=== PATIENT | female | born 1955 | race Caucasian/White ===

== ENCOUNTER 2016-10-01 12:15 | Inpatient (IN) | payer MEDICARE ==
[~2016-10-01] VITALS: Ht 172.7 cm; Wt 95.3 kg
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
[~2016-10-01 12:15] MED LIST: ALOE VESTA141 GM TOP; AMBIEN5 MG PO; ATARAX25 MG PO; ATIVAN 0.5MG0.5 MG PO; CARDIZEM CD (T120 MG PO; CARDIZEM SR120 MG PO; COLACE100 MG PO; DAKINS 0.25% (473 ML TOP; DETROL LA EXTEND4 MG PO; DIFLUCAN100 MG PO; DRISDOL 5050000 UNIT PO; DULCOLAX10 MG R; GEODON40 MG PO; GLUCOPHAGE1000 MG PO; HYDROCODON-ACE1 EAC4 PO; INVANZ 1 G1 GM/100 M IV; KEFLEX250 MG PO; LAMICTAL100 MG PO; LEVAQUIN500 MG PO; LEXAPRO20 MG PO; LINZESS145 MCG PO; MACROBID100 MG PO; MIRALAX17 GM PO; NEURONTIN600 MG PO; NORCO 5-325 MG1 TAB PO; NOVOLOG100 UNIT/M SUB-Q; OXYGEN M-15 INH; PERCOCET 5-3251 EACH PO; PLAVIX75 MG PO; POTASSIUM99 M1 PO; PROBIOTIC1 EAC1 PO; PROVENTIL OR V6.7 GM INH; PYRIDIUM200 MG PO; SENOKOT S (S1 TABLET PO; SEROQUEL100 MG PO; SIMVASTATIN80 MG PO; SINEQUAN25 MG PO; STOOL SOFTENER1 EACH PO; THERAGRAN-M1 TAB PO; TOUJEO SOL300 UNIT/1 SUB-Q; TRULICITY1.5 MG/0.5 SUB-Q; TYLENOL EXTRA500 MG PO; ULTRAM50 MG PO; VASOTEC20 MG PO; VESICARE5 MG PO; VITAMIN D1000 UNIT PO; ZOCOR80 MG PO
[2016-10-01 13:41] LABS: BICARBONATE 31.7 mmol/L (18.0-23.0); PCO2 66 mmHg (35-45)
[2016-10-01 13:42] LABS: BASOPHIL % 0.5 %; EOSINOPHIL # 0.2 K/uL (0.0-0.5); EOSINOPHIL % 2.9 %; HEMATOCRIT 30.3 % (33.0-46.0); HEMOGLOBIN 8.6 g/dL (10.0-15.0); IMMATURE GRANULOCYTE % 0.2 %; LYMPHOCYTE # 1.2 K/uL (0.8-4.0); LYMPHOCYTE % 20.6 %; MCH 24.6 pg (27.0-34.0); MCHC 28.4 gm/dL (32.0-36.5); MCV 86.6 fl (83.0-98.0); MONOCYTE # 0.4 K/uL (0.0-1.0); MONOCYTE % 6.6 %; MPV 9.9 fl (9.4-12.4); NEUTROPHIL # (ANC) 4.1 K/uL (1.8-7.8); NEUTROPHIL % 69.2 %; NRBC % 0 /100WBC (0-0.00); PO2 45 mmHg (80-90); WBC 5.9 K/uL (4.0-11.0)
[2016-10-01 13:43] LABS: PLATELET COUNT 283 K/uL (150-450); RDW-CV 18.1 % (11.9-14.6)
[2016-10-01 14:02] LABS: PROTIME 10.6 SECONDS (9.6-11.1); PTT 27 SECONDS (25-32)
[2016-10-01 14:02] LABS: BICARBONATE 30.9 mmol/L (18.0-23.0); PCO2 60 mmHg (35-45)
[2016-10-01 14:03] LABS: ALBUMIN 2.7 gm/dL (3.5-5.0); ALK PHOS 58 IU/L (33-138); ALT 17 IU/L (12-78); ANION GAP 13.8 (10.0-19.0); AST 22 IU/L (10-40); BLOOD UREA NITROGEN 32 mg/dL (6-24); CALCIUM 7.8 mg/dL (8.5-10.5); CHLORIDE 106 mMol/L (96-110); CO2 30 mMol/L (22-32); CREATININE 1.6 mg/dL (0.5-1.1); POTASSIUM 4.8 mMol/L (3.7-5.1); SODIUM 145 mMol/L (135-145)
[2016-10-01 14:03] LABS: LACTATE 1.4 mEq/L (0.50-1.60); PO2 58 mmHg (80-90)
[2016-10-01 14:05] LABS: ESTIMATED GFR (MDRD EQUATION) 33; TOTAL BILIRUBIN < 0.1 mg/dL (0.0-1.5)
[2016-10-01 14:30] LABS: BILIRUBIN URINE NEGATIVE (NEGATIVE); BLOOD URINE 150 /UL (NEGATIVE); COLOR URINE YELLOW (YELLOW); GLUCOSE URINE NEGATIVE (NEGATIVE); KETONE URINE NEGATIVE (NEGATIVE); LEUKOCYTES URINE 500 /UL (NEGATIVE); NITRITE URINE POSITIVE (NEGATIVE); PROTEIN URINE 30 mg/dL (NEGATIVE); TURBIDITY URINE 3+ (CLEAR); UROBILINOGEN URINE NORMAL (NORMAL)
[2016-10-01 14:40] LABS: BACTERIA URINE MODERATE (NEGATIVE); EPITHELIAL URINE 0-2 #/HPF (NEGATIVE); WBC URINE 50-100 #/HPF (NEGATIVE)
[2016-10-01 14:41] LABS: WBC CLUMPS URINE FEW (NEGATIVE); YEAST URINE FEW (NEGATIVE)
[2016-10-01] MEDS ORDERED: VESICARE5 MG PO (14:56)
[2016-10-01] MEDS ORDERED: CIPRO500 MG PO (14:57)
[2016-10-01 17:53] LABS: BICARBONATE 30.4 mmol/L (18.0-23.0); LACTATE 1.8 mEq/L (0.50-1.60); PCO2 55 mmHg (35-45); PO2 62 mmHg (80-90)
--- NOTE | 2016-10-01 19:18 | NUR ---
Significant Event: Admitted to ICU this afternoon for sepsis. Initial hypotension resolved with fluid resuscitation. Drowsy and confused on admission, but alert and oriented later this afternoon. Pleasant and cooperative. Family at bedside. Follow up: continue
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
[2016-10-02 06:08] LABS: ALBUMIN 2.3 gm/dL (3.5-5.0); ANION GAP 9.1 (10.0-19.0); CHLORIDE 107 mMol/L (96-110); CO2 33 mMol/L (22-32); CREATININE 0.8 mg/dL (0.5-1.1); PHOSPHORUS 2.8 mg/dL (2.5-4.9); POTASSIUM 4.1 mMol/L (3.7-5.1); SODIUM 145 mMol/L (135-145)
[2016-10-02 06:13] LABS: BLOOD UREA NITROGEN 15 mg/dL (6-24); ESTIMATED GFR (MDRD EQUATION) > 60
--- NOTE | 2016-10-02 09:14 | NUR ---
Diabetes Consult: Patient appeared on hypoglycemic report with blood sugars yesterday of 67 and 53. Blood sugars have improved with fasting blood sugar of 142 this morning. Patient has Novolog mild correction ordered. She does take Lantus 60 units at home, Novolog, Trulicity and Metformin. Will continue to trend blood sugars today. At this point, the patient remains acutely ill and is well controlled on Novolog correction.
--- NOTE | 2016-10-02 11:45 | NUR ---
Introduced self and role of care management to patient's . Patient is busy with nurses. They live in [place]. Her states that he helps her get up to her wheel chair and then she is able to get herself on and off the commode. She has a gal come in that helps her with bathing and dressing. He states that they have everything at home for DME's they would need. He states that they have a good system in place. He plans on her returning home on discharge. He denies any needs at this time. Will continue to follow.
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
[2016-10-03 03:36] LABS: BASOPHIL % 0.6 %; EOSINOPHIL # 0.1 K/uL (0.0-0.5); HEMATOCRIT 29.6 % (33.0-46.0); HEMOGLOBIN 8.7 g/dL (10.0-15.0); IMMATURE GRANULOCYTE % 0.2 %; LYMPHOCYTE # 1.4 K/uL (0.8-4.0); LYMPHOCYTE % 28.1 %; MCH 24.6 pg (27.0-34.0); MCHC 29.4 gm/dL (32.0-36.5); MCV 83.9 fl (83.0-98.0); MONOCYTE # 0.4 K/uL (0.0-1.0); MONOCYTE % 7.9 %; MPV 9.6 fl (9.4-12.4); NEUTROPHIL # (ANC) 3.1 K/uL (1.8-7.8); NEUTROPHIL % 61.2 %; NRBC % 0 /100WBC (0-0.00); PLATELET COUNT 279 K/uL (150-450); RBC 3.53 M/uL (3.50-5.50); RDW-CV 17.9 % (11.9-14.6); WBC 5.1 K/uL (4.0-11.0)
[2016-10-03 03:53] LABS: ANION GAP 9.6 (10.0-19.0); BLOOD UREA NITROGEN 9 mg/dL (6-24); CALCIUM 8.3 mg/dL (8.5-10.5); CHLORIDE 107 mMol/L (96-110); CO2 32 mMol/L (22-32); CREATININE 0.8 mg/dL (0.5-1.1); ESTIMATED GFR (MDRD EQUATION) > 60; POTASSIUM 3.6 mMol/L (3.7-5.1); SODIUM 145 mMol/L (135-145)
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
--- NOTE | 2016-10-03 16:03 | NUR ---
Significant Event: HR TACHY, LOW 100'S. OTHER VSS. C/O PAIN TO COCCYX, REPOSITIONS FREQUENTLY WITH 2 ASSIST. UP IN CHAIR X2 VIA FULL LIFT. ULTRAM X1 AND NORCO X1 FOR PAIN. ATIVAN X1 FOR ANXIETY. MIDLINE TO RIGHT UPPER FA SL'D. PIV TO LEFT FA SL'D. LR 500 ML BOLUS GIVEN X1. VANCO IV INITIATED, RX DOSING. KCL 20 MEQ PO X1 GIVEN. AT BEDSIDE THIS AFTERNOON. Follow up:
[2016-10-04 04:53] LABS: BASOPHIL % 0.7 %; EOSINOPHIL # 0.2 K/uL (0.0-0.5); EOSINOPHIL % 3.7 %; HEMATOCRIT 28.5 % (33.0-46.0); HEMOGLOBIN 8.7 g/dL (10.0-15.0); IMMATURE GRANULOCYTE % 0.2 %; LYMPHOCYTE % 36.8 %; MCH 24.9 pg (27.0-34.0); MCHC 30.5 gm/dL (32.0-36.5); MCV 81.7 fl (83.0-98.0); MONOCYTE # 0.4 K/uL (0.0-1.0); MONOCYTE % 6.9 %; MPV 9.4 fl (9.4-12.4); NEUTROPHIL # (ANC) 2.8 K/uL (1.8-7.8); NEUTROPHIL % 51.7 %; NRBC % 0 /100WBC (0-0.00); PLATELET COUNT 265 K/uL (150-450); RBC 3.49 M/uL (3.50-5.50); RDW-CV 18.3 % (11.9-14.6); WBC 5.4 K/uL (4.0-11.0)
[2016-10-04 05:11] LABS: ANION GAP 11.7 (10.0-19.0); BLOOD UREA NITROGEN 8 mg/dL (6-24); CALCIUM 8.3 mg/dL (8.5-10.5); CHLORIDE 108 mMol/L (96-110); CO2 28 mMol/L (22-32); CREATININE 0.7 mg/dL (0.5-1.1); ESTIMATED GFR (MDRD EQUATION) > 60; POTASSIUM 3.7 mMol/L (3.7-5.1); SODIUM 144 mMol/L (135-145)
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
[2016-10-04] MEDS ORDERED: LACTINEX (FLORA1 TAB PO (14:57)
[2016-10-04] MEDS ORDERED: DOXYCYCLINE100 MG PO (15:05)
--- NOTE | 2016-10-04 18:55 | NUR ---
Patient provided dismissal information as well as handouts on new medications. participated in patient's dismissal teaching. Patient was assisted with getting dressing and was transferred to her wheelchair using mechanical lift. Both peripheral IV's were discontinued, IV catheter tips intact. Patient had 1050 mL UOP from her suprapubic catheter. Accompanied down to [facility] by Sanjeev Ortega RN at 1627 to be dismissed to home.
[2016-10-20] MEDS ORDERED: DIFLUCAN200 MG PO (09:47)
== END 2016-10-04 16:37 | disposition disaster alternative care site (69) | DRG 698 ==
LOC: GICU 12:15 → GPCU 10-02 16:04
PROVIDERS: Internal Medicine; Nurse Practitioner; ADMIT Internal Medicine
DX: T83.510A Infection and inflammatory reaction due to cystostomy catheter, initial encounter (principal); R65.21 Severe sepsis with septic shock; A41.02 Sepsis due to Methicillin resistant Staphylococcus aureus; G93.40 Encephalopathy, unspecified; J96.11 Chronic respiratory failure with hypoxia; N17.9 Acute kidney failure, unspecified; N18.3 Chronic kidney disease, stage 3 (moderate); G82.20 Paraplegia, unspecified; E11.649 Type 2 diabetes mellitus with hypoglycemia without coma; F39 Unspecified mood [affective] disorder; N31.9 Neuromuscular dysfunction of bladder, unspecified; E11.22 Type 2 diabetes mellitus with diabetic chronic kidney disease; I12.9 Hypertensive chronic kidney disease with stage 1 through stage 4 chronic kidney disease, or unspecified chronic kidney disease; E11.65 Type 2 diabetes mellitus with hyperglycemia; D63.1 Anemia in chronic kidney disease
CPT/HCPCS: C1751; C9113; J1644; J2185; J2405; J3370; J7030; J7050; J7120

== ENCOUNTER → 2016-10-21 | Day surgery (SDC) | payer MEDICARE ==
[~2016-10-21] VITALS: Ht 172.7 cm; Wt 91.8 kg
[~2016-10-21] MED LIST changes: +CIPRO500 MG PO; +DIFLUCAN200 MG PO; +DOXYCYCLINE100 MG PO; +FEOSOL325 MG PO; +FLORASTOR250 MG PO; +LACTINEX (FLORA1 TAB PO; +LEVAQUIN750 MG PO; +MERREM IV500 MG IV; +NORCO 5-325 TA1 EACH PO; +POTASSIUM GLUCO99 MG PO; +STOOL SOFTENER1 EAC2 PO; +ZOFRAN4 MG PO
--- NOTE | ~2016-10-21 | OR ---
PATIENT'S NAME: LISANDRA SAUL [facility] AGE: 60 Y [address] ROOM: [place] [address] [place] [facility] [place]: 10/21/2016 OR/Procedure Report DISCHARGE DATE: FAMILY PHYSICIAN: Medardo Mera MD ATTENDING PHYSICIAN: Tata Barreto SURGEON: Tata Barreto MD PRIMARY HEALTH ORGANISATION MANAGER: None. DATE OF PROCEDURE: 10/21/2016 PREOPERATIVE DIAGNOSES: 1. Right nephrolithiasis. 2. Right hydronephrosis with indwelling right ureteral stent. 3. Neurogenic bladder. 4. Recurrent urinary tract infection. 5. Urinary retention with chronic indwelling suprapubic tube catheter. 6. History of refractory overactive bladder with urinary urgency and urge incontinence. POSTOPERATIVE DIAGNOSES: 1. Right nephrolithiasis. 2. Right hydronephrosis with indwelling right ureteral stent. 3. Neurogenic bladder. 4. Recurrent urinary tract infection. 5. Urinary retention with chronic indwelling suprapubic tube catheter. 6. History of refractory overactive bladder with urinary urgency and urge incontinence. PROCEDURES PERFORMED: 1. Cystoscopy with right ureteral stent exchange. 2. Right extracorporeal shockwave lithotripsy. 3. Cystoscopy with bladder Botox injection 300 units. 4. Suprapubic tube catheter exchange. INDICATIONS FOR PROCEDURE: The patient is a pleasant 60-year-old female with history of neurogenic bladder and urinary retention requiring indwelling Pascal catheter. Given difficulties with her urethral catheter, she had opted for suprapubic tube catheter placement which was initially placed on 10/04/2015. The patient had been having difficulty with continued urge incontinence despite pharmacologic therapy and has been undergoing routine cystoscopy with bladder Botox injection (300 units) with most recent injection performed on 06/02/2016 with good results. She also has a history of recurrent urinary tract infection. She had also presented with presented with right flank pain and was found to have a CT scan with right hydroureteronephrosis. She does have a remote history of UPJ obstruction for which she underwent right pyeloplasty by Dr. Otero back in the 1970s. She also has a history of PATIENT'S NAME: LISANDRA SAUL [facility] AGE: 60 Y [address] ROOM: [place] [address] [place] [facility] [place]: 10/21/2016 OR/Procedure Report DISCHARGE DATE: FAMILY PHYSICIAN: Medardo Mera MD ATTENDING PHYSICIAN: Tata Barreto duplicated right renal collecting system to the level of her proximal ureter. She had recently underwent cystoscopy with placement of indwelling right ureteral stent on 07/15/2016 as well as bladder biopsy with pathology consistent with acute cystitis. She was also recently noted to have a right lower pole renal calculus. The patient was explained the risks, benefits, indications, and alternatives of above procedure and wished to proceed and consented freely. DESCRIPTION OF OPERATION: The patient was brought back to the operating room. She was placed on the OR table in the supine position. A surgical time-out was called where patient identification, surgical site, and procedure were then verified. We also did verify that the patient received an IV antibiotic within an hour of beginning the procedure. The patient then underwent successful administration of monitored anesthesia care. The patient was then moved and placed in a low lithotomy position. Her genital area was then prepped and draped in usual sterile fashion as well as prepping her suprapubic tube catheter site, which was removed. I did place a new suprapubic tube catheter upsizing it to a 22-Andorran suprapubic tube catheter with 10 mL of sterile water in the balloon. I then carefully advanced the cystoscope into the patient's bladder via the urethra. Her urethra was within normal limits. Upon entry into her bladder, full pancystoscopy was performed. Her bladder was negative for any bladder tumors or bladder stones. She did have a small capacity bladder and had mild trabeculation and fibrous bands noted throughout. There was no evidence of any large diverticula, although she did have a small cellule noted along her right lateral to posterior bladder wall. Her ureteral orifices were noted to be in their orthotopic location, and I did visualize the indwelling curl of the distal right ureteral stent. I then used the stent graspers to grab the distal curl of the indwelling right ureteral stent and brought this out through her urethral meatus. I then advanced a Sensor guidewire through the stent and up to the patient's right renal pelvis and then removed the stent in its entirety leaving the wire in place. Then, over the wire, I advanced a 6-Andorran x 22 cm ureteral stent, deployed it, noting a good curl fluoroscopically in the patient's right renal pelvis as well as a good curl fluoroscopically in the patient's bladder. I then reentered with the cystoscope. I had prepared the Botox freshly on a back table at the commencement of the procedure. I took 100 units and diluted it with 10 mL of preservative-free injectable saline to create a 10 unit/mL solution. I did this 3 times now having 300 units in 30 mL. I used a bladder map as originally described by which is a 5 x 6 grid with 1 mL injected into each site at a depth of approximately 4 to 5 mm. I injected the lateral jackson, trigone, and posterior bladder wall. Once all 30 sites were injected, we then decompressed the bladder. I inspected for hemostasis, which did appear to be excellent. Her suprapubic tube catheter was then placed back to gravity drainage. The patient was then taken out of the lithotomy position where she was then transferred over to the recovery bed and then transferred PATIENT'S NAME: LISANDRA SAUL [facility] AGE: 60 Y [address] ROOM: [place] [address] [place] [facility] [place]: 10/21/2016 OR/Procedure Report DISCHARGE DATE: FAMILY PHYSICIAN: Medardo Mera MD ATTENDING PHYSICIAN: Tata Barreto over to the lithotripsy treatment bed where we then brought her right renal calculus into focal point using fluoroscopy. I then began performing shockwave lithotripsy starting at 14 kilovolts and working up sequentially to 24 kilovolts in energy. A total of 2400 shocks were delivered to the stone and we had nice fragmentation by fluoroscopic monitoring. The patient did tolerate the procedure well. The patient was then awoken from monitored anesthesia care. She was then transferred over to the recovery bed and transferred back to the recovery room in good condition. The patient did tolerate the procedure well. COMPLICATIONS: None. DRAINS: Indwelling 6-Andorran x 22 cm right ureteral stent and indwelling suprapubic tube catheter (22-Andorran). ESTIMATED BLOOD LOSS: Minimal. FOLLOWUP PLAN: We will plan to see the patient back for followup in Urology Clinic in 2 months for routine suprapubic tube catheter exchange. We will plan for followup in 5 months with a repeat cystoscopy with bladder Botox injection and possible right ureteral stent exchange versus removal with possible right retrograde ureteropyelogram. TATA BARRETO MD GP/modl /[id number] CC: Medardo Mera MD d: 10/21/165 t: 10/30/16 1918, OPERATIVE SUMMARY
== END | disposition disaster alternative care site (69) ==
LOC: GPOC 10-17 13:00 → GSDC 07:00 → GPOC 10-27 10:00
PROC: 0T768DZ Dilation of Right Ureter with Intraluminal Device, Via Natural or Artificial Opening Endoscopic (ICD-10-PCS; principal; 2016-10-21)
PROC: 0TP98DZ Removal of Intraluminal Device from Ureter, Via Natural or Artificial Opening Endoscopic (ICD-10-PCS; 2016-10-21)
PROC: 0TF3XZZ Fragmentation in Right Kidney Pelvis, External Approach (ICD-10-PCS; 2016-10-21)
PROC: 3E0K8GC Introduction of Other Therapeutic Substance into Genitourinary Tract, Via Natural or Artificial Opening Endoscopic (ICD-10-PCS; 2016-10-21)
PROC: 0T2BX0Z Change Drainage Device in Bladder, External Approach (ICD-10-PCS; 2016-10-21)
DX: N13.2 Hydronephrosis with renal and ureteral calculous obstruction (principal); R33.9 Retention of urine, unspecified; N31.9 Neuromuscular dysfunction of bladder, unspecified; N39.41 Urge incontinence; N32.81 Overactive bladder; N39.0 Urinary tract infection, site not specified; I10 Essential (primary) hypertension; E11.40 Type 2 diabetes mellitus with diabetic neuropathy, unspecified; E78.5 Hyperlipidemia, unspecified; F32.9 Major depressive disorder, single episode, unspecified; E55.9 Vitamin D deficiency, unspecified; E66.01 Morbid (severe) obesity due to excess calories; Z98.890 Other specified postprocedural states; Z88.2 Allergy status to sulfonamides; Z88.8 Allergy status to other drugs, medicaments and biological substances; Z79.84 Long term (current) use of oral hypoglycemic drugs; Z79.899 Other long term (current) drug therapy
CPT/HCPCS: C1769; C2617; J0585; J1956; J7030

== ENCOUNTER → 2016-12-22 | Outpatient (CLI) | payer MEDICARE | LOC: LGSMG 16:53 | DX: N76.0 Acute vaginitis (principal) ==

== ENCOUNTER 2017-01-19 12:38 | Inpatient (IN) | payer MEDICARE ==
[~2017-01-19] VITALS: Ht 162.6 cm; Wt 95.0 kg
--- NOTE | ~2017-01-19 | DS ---
PATIENT'S NAME: LISANDRA SAUL [facility] AGE: 61 Y [address] ROOM: [id number] [place], [place] [address] LOCATION: GICU ADMIT DATE: 01/19/2017 Discharge Summary DISCHARGE DATE: 01/21/2017 FAMILY PHYSICIAN: Medardo Mera MD ATTENDING PHYSICIAN: Milton Hernandez This is a 61-year-old female with history of paraplegia and neurogenic bladder. She has a chronic Pascal with a history of recurrent urinary tract infection. She has a history of MRSA in her urine, Klebsiella, and she also has a history of diabetes mellitus type 2 and hypertension. She is on Plavix in place of aspirin for her diabetes and dyslipidemia as she is allergic to aspirin. Was brought to the [facility] on January 19 for sepsis secondary to pseudomonas UTI and a mild TITUS on 01/19/2017. The patient is status post sepsis protocol. She received IV fluids. She received meropenem. She was pancultured. Her blood culture is negative at discharge. Her urine culture grew more than 100,000 of pseudomonas and also more than 100,000 of Zulema albicans. I curbsided Dr. Castro, Infectious Disease doctor, who felt that as long as she has had her Pascal exchanged, the Zulema albicans should not be a problem. Therefore, Diflucan has been stopped, and she will not be discharged on Diflucan. In regard to her Pseudomonas aeruginosa, she is sensitive to levofloxacin. Therefore, I will send her home on levofloxacin 750 mg daily for 10 days total. Of note, Urology was consulted, and as stated above, her Pascal was exchanged on January 21, 2017. The patient is to follow up with her PCP in 1 week, and also she will need to follow up with Urology as scheduled. DISCHARGE PHYSICAL EXAMINATION: VITAL SIGNS: Stable. She is afebrile. Her blood pressure is 160s/70s; respiratory rate is 12; and heart rate is in the 60s, 70s. She is on room air. GENERAL: She is alert, awake, and oriented. LUNGS: Diminished but clear. No crackles, no wheezing. HEART: Heart sounds are regular in rate and rhythm. No murmurs present. No rubs. ABDOMEN: Soft, nontender. No guarding. No rigidity. No organomegaly. EXTREMITIES: No pedal edema present on her bilateral extremities. MD BARB SHAW/ha /[id number] d: 01/22/17 0418 t: 01/22/17 1613, DISCHARGE SUMMARY
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
[~2017-01-19 12:38] MED LIST changes: -FEOSOL325 MG PO; -FLORASTOR250 MG PO; -LEVAQUIN750 MG PO; -MERREM IV500 MG IV; -NORCO 5-325 TA1 EACH PO; -POTASSIUM GLUCO99 MG PO; -STOOL SOFTENER1 EAC2 PO; -ZOFRAN4 MG PO
[2017-01-19 13:14] LABS: BILIRUBIN URINE NEGATIVE (NEGATIVE); BLOOD URINE 250 /UL (NEGATIVE); COLOR URINE YELLOW (YELLOW); GLUCOSE URINE NEGATIVE (NEGATIVE); KETONE URINE NEGATIVE (NEGATIVE); LEUKOCYTES URINE 500 /UL (NEGATIVE); NITRITE URINE POSITIVE (NEGATIVE); PROTEIN URINE 100 mg/dL (NEGATIVE); TURBIDITY URINE 4+ (CLEAR); UROBILINOGEN URINE NORMAL (NORMAL)
[2017-01-19 13:19] LABS: BASOPHIL # 0.1 K/uL (0.0-0.2); BASOPHIL % 0.6 %; EOSINOPHIL # 0.2 K/uL (0.0-0.5); EOSINOPHIL % 2.2 %; HEMATOCRIT 31.7 % (33.0-46.0); HEMOGLOBIN 9.6 g/dL (10.0-15.0); IMMATURE GRANULOCYTE % 0.4 %; LYMPHOCYTE # 2.1 K/uL (0.8-4.0); LYMPHOCYTE % 24.9 %; MCH 25.9 pg (27.0-34.0); MCHC 30.3 gm/dL (32.0-36.5); MCV 85.4 fl (83.0-98.0); MONOCYTE # 0.5 K/uL (0.0-1.0); MPV 9.2 fl (9.4-12.4); NEUTROPHIL # (ANC) 5.5 K/uL (1.8-7.8); NEUTROPHIL % 65.9 %; NRBC % 0 /100WBC (0-0.00); RBC 3.71 M/uL (3.50-5.50); WBC 8.3 K/uL (4.0-11.0)
[2017-01-19 13:20] LABS: PLATELET COUNT 375 K/uL (150-450)
[2017-01-19 13:27] LABS: INR - (THERAPEUTIC) 0.97 (0.92-1.07); PROTIME 10.2 SECONDS (9.8-11.4); PTT 27 SECONDS (25-32)
[2017-01-19 13:32] LABS: WBC URINE PACKED FIELD #/HPF (NEGATIVE)
[2017-01-19 13:33] LABS: BACTERIA URINE MANY (NEGATIVE); EPITHELIAL URINE NEGATIVE #/HPF (NEGATIVE); MUCUS URINE 2+ (NEGATIVE); YEAST URINE MODERATE (NEGATIVE)
[2017-01-19 13:34] LABS: AMORPHOUS URINE 1+ (NEGATIVE)
[2017-01-19 13:40] LABS: ALBUMIN 2.5 gm/dL (3.5-5.0); ANION GAP 13.8 (10.0-19.0); CALCIUM 8.7 mg/dL (8.5-10.5); CREATININE 1.3 mg/dL (0.5-1.1); POTASSIUM 4.8 mMol/L (3.7-5.1)
[2017-01-19 13:47] LABS: TOTAL BILIRUBIN 0.2 mg/dL (0.0-1.5)
[2017-01-19 17:28] LABS: BICARBONATE 29.6 mmol/L (18.0-23.0); LACTATE 0.6 mEq/L (0.50-1.60); PCO2 50 mmHg (35-45); PO2 64 mmHg (80-90)
[2017-01-19] MEDS ORDERED: VESICARE5 MG PO (20:00)
[2017-01-19] MEDS ORDERED: POTASSIUM GLUCO99 MG PO (20:02)
[2017-01-20] MEDS ORDERED: THERAGRAN-M1 TAB PO (16:05)
[2017-01-20] MEDS ORDERED: STOOL SOFTENER1 EAC2 PO (16:05)
[2017-01-20] MEDS ORDERED: TOUJEO SOL300 UNIT/1 SUB-Q (16:06)
[2017-01-20] MEDS ORDERED: PROBIOTIC1 EAC1 PO (16:06)
[2017-01-20] MEDS ORDERED: TRULICITY1.5 MG/0.5 SUB-Q (16:07)
[2017-01-21 05:19] LABS: BASOPHIL % 0.5 %; EOSINOPHIL # 0.2 K/uL (0.0-0.5); EOSINOPHIL % 3.5 %; HEMATOCRIT 32.2 % (33.0-46.0); IMMATURE GRANULOCYTE % 0.4 %; LYMPHOCYTE # 1.5 K/uL (0.8-4.0); LYMPHOCYTE % 27.3 %; MCHC 31.1 gm/dL (32.0-36.5); MCV 83.9 fl (83.0-98.0); MONOCYTE # 0.4 K/uL (0.0-1.0); MONOCYTE % 6.9 %; MPV 9.2 fl (9.4-12.4); NEUTROPHIL # (ANC) 3.4 K/uL (1.8-7.8); NEUTROPHIL % 61.4 %; NRBC % 0 /100WBC (0-0.00); PLATELET COUNT 301 K/uL (150-450); RBC 3.84 M/uL (3.50-5.50); RDW-CV 14.7 % (11.9-14.6); WBC 5.5 K/uL (4.0-11.0)
[2017-01-21 05:36] LABS: ALBUMIN 2.3 gm/dL (3.5-5.0); ANION GAP 10.7 (10.0-19.0); CALCIUM 8.3 mg/dL (8.5-10.5); CREATININE 0.8 mg/dL (0.5-1.1); POTASSIUM 3.7 mMol/L (3.7-5.1); TOTAL BILIRUBIN 0.2 mg/dL (0.0-1.5); TOTAL PROTEIN 6.7 g/dL (6.0-8.4)
[2017-01-21] MEDS ORDERED: LEVAQUIN750 MG PO (10:26)
== END 2017-01-21 10:47 | disposition disaster alternative care site (69) | DRG 698 ==
LOC: GMED 12:38 → GICU 14:31
PROVIDERS: Emergency Medicine; Hospitalist; ADMIT Family Medicine
DX: T83.511A Infection and inflammatory reaction due to indwelling urethral catheter, initial encounter (principal); A41.9 Sepsis, unspecified organism; R65.20 Severe sepsis without septic shock; L89.153 Pressure ulcer of sacral region, stage 3; N17.9 Acute kidney failure, unspecified; G82.20 Paraplegia, unspecified; E11.9 Type 2 diabetes mellitus without complications; I10 Essential (primary) hypertension; B96.5 Pseudomonas (aeruginosa) (mallei) (pseudomallei) as the cause of diseases classified elsewhere; N20.1 Calculus of ureter; D63.8 Anemia in other chronic diseases classified elsewhere; N39.0 Urinary tract infection, site not specified; N31.9 Neuromuscular dysfunction of bladder, unspecified; G47.33 Obstructive sleep apnea (adult) (pediatric); J45.909 Unspecified asthma, uncomplicated; Z74.09 Other reduced mobility; Z93.59 Other cystostomy status; E66.01 Morbid (severe) obesity due to excess calories; Z68.35 Body mass index [BMI] 35.0-35.9, adult; Z71.3 Dietary counseling and surveillance; F31.9 Bipolar disorder, unspecified; Z88.8 Allergy status to other drugs, medicaments and biological substances
CPT/HCPCS: C9113; J1335; J1650; J2020; J2185; J7030; J7040; J7050

== ENCOUNTER 2017-02-07 11:41 | Inpatient (IN) | payer MEDICARE ==
[~2017-02-07] VITALS: Ht 172.7 cm; Wt 92.1 kg
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
--- NOTE | ~2017-02-07 | DS ---
PATIENT'S NAME: LISANDRA SAUL [facility] AGE: 61 Y [address] ROOM: [place] [address] LOCATION: [facility] ADMIT DATE: 02/07/2017 Discharge Summary DISCHARGE DATE: 02/14/2017 FAMILY PHYSICIAN: Medardo Mera MD ATTENDING PHYSICIAN: Angi Barton DISCHARGE DIAGNOSES: 1. Urosepsis with methicillin-resistant Staphylococcus aureus and Pseudomonas. 2. Neurogenic bladder. 3. Right nephrolithiasis. 4. Diabetes mellitus, type 2. 5. Hypertension. 6. Obstructive sleep apnea. 7. Obesity. 8. Anemia of chronic disease. PRINCIPAL PROCEDURES: Cystoscopy with stent replacement and stone retrieval by Dr. Barreto. REASON FOR ADMISSION: Signs and symptoms of infection. LABORATORY DATA: Urine grew out both MRSA greater than 100,000, Pseudomonas 10,000 to 50,000, looks like her illness was primarily due to the MRSA, it was sensitive to pretty much everything. Pseudomonas was not sensitive to anything orally. Accu-Cheks are under better control, it was difficult for us to control them without her Trulicity here, but we will send her back home on her regular medications for diabetes and hope that she maintains good control. Her chemistries; initial pH was 7.38 with CO2 of 50 and PO2 of 64. Her electrolytes including CO2 were normal, when she was last tested. Calcium and albumin were low. Liver function tests were normal. Amylase and lipase were low. ProBNP was minimally elevated at 186. CRP was elevated at 1.87 on February 07. Ferritin was normal. Folate was high. B12 was normal. Hematology: Last white count 9.8 with hemoglobin 9.5, that is stable for her, the highest she got was 10.1; platelets were normal throughout the hospitalization. Sedimentation rate was elevated on February 07 at 73, consistent with her illness. Her reticulocyte count was low. Procalcitonin was actually normal on February 07. Urinalysis showed packed field of wbc's with 50-100 rbc's, rare epithelials, many bacteria. There was no radiology done during this visit. PHYSICAL EXAM: CHEST: She is not dyspneic. Chest was clear. HEART: Regular rate and rhythm without murmur. ABDOMEN: Belly is soft, nontender. PATIENT'S NAME: LISANDRA SAUL [facility] AGE: 61 Y [address] ROOM: [address] [address] LOCATION: [facility] ADMIT DATE: 02/07/2017 Discharge Summary DISCHARGE DATE: 02/14/2017 FAMILY PHYSICIAN: Medardo Mera MD ATTENDING PHYSICIAN: Angi Barton NEUROLOGIC: She is alert, articulate, and oriented x3. HOSPITAL COURSE: Blood pressure and blood sugars were difficult to control. We actually did an ultrasound of the renal arteries to look at that and that was normal. We will replace her on her regular home medications when she leaves and have her follow up with primary hopefully early next week and make sure she is controlled as an outpatient. Dr. Barreto said he took out several chunks from her right john, which could have been the nidus of infection and the cause of the last 4 admissions for urosepsis. You could argue this was not urosepsis because her blood cultures were negative, but I would argue that we just caught her early because she knows now what to look for. She will be discharged on diet ad javier. Activity ad javier and medications per nursing med recon. I will give her 7 extra days of doxycycline to cover for the MRSA as she is allergic to sulfa, and I am betting with her permission that she does not need IV antibiotics as an outpatient because the total count on the Pseudomonas was low and we have nuked that for a week with antibiotics plus Dr. Barreto has removed what we hoped was any nidus of infection and she has had antibiotics subsequently for [address] Barreto wants to see her in 4 weeks for possible removal of her stent. She will resume [facility] and we will hopefully have seen the last of this urosepsis. Note that this discharge procedure took greater than 30 minutes. MD SHAWN ROOT/modl /[id number] d: 02/14/171925 t: 08/20/17 1556, DISCHARGE SUMMARY
--- NOTE | ~2017-02-07 | OR ---
PATIENT'S NAME: LISANDRA SAUL [facility] AGE: 61 Y [address] ROOM: [place] [address] LOCATION: GPCU ADMIT DATE: 02/07/2017 OR/Procedure Report DISCHARGE DATE: FAMILY PHYSICIAN: Medardo Mera MD ATTENDING PHYSICIAN: Angi Barton SURGEON: Tata Barreto MD LAWN CARE WORKER: None. DATE OF PROCEDURE: 02/13/2017 PREOPERATIVE DIAGNOSES: 1. History of right hydronephrosis with indwelling right ureteral stent. 2. Neurogenic bladder. 3. Recurrent urinary tract infection. 4. Urinary retention with chronic indwelling suprapubic tube catheter. 5. History of refractory overactive bladder with urinary urgency and urge incontinence. 6. Right nephrolithiasis. POSTOPERATIVE DIAGNOSES: 1. History of right hydronephrosis with indwelling right ureteral stent. 2. Neurogenic bladder. 3. Recurrent urinary tract infection. 4. Urinary retention with chronic indwelling suprapubic tube catheter. 5. History of refractory overactive bladder with urinary urgency and urge incontinence. 6. Right nephrolithiasis. PROCEDURES PERFORMED: 1. Right ureteroscopy with ureteroscopic stone extraction, laser lithotripsy, and right ureteral stent exchange. 2. Cystoscopy with bladder Botox injection 300 units. 3. Suprapubic tube catheter exchange. INDICATION FOR PROCEDURE: The patient is a pleasant, 61-year-old female, with history of neurogenic bladder and urinary retention requiring indwelling Pascal catheter. Given her difficulty with urethral catheter, she had opted for suprapubic tube catheter which was initially placed on October 04, 2015. The patient has had continued difficulty with urge incontinence despite pharmacologic therapy and has had good success with cystoscopy with bladder Botox injection 300 units. She also has a history of recurrent urinary tract infection. She had also presented recently with right flank pain and was found to have right hydroureteronephrosis. She does have a remote history of UPJ obstruction as well as right duplicated renal collecting system. For which she underwent a right pyeloplasty by Dr. Otero back in the 1970s. She PATIENT'S NAME: LISANDRA SAUL [facility] AGE: 61 Y [address] ROOM: [address] [address] LOCATION: GPCU ADMIT DATE: 02/07/2017 OR/Procedure Report DISCHARGE DATE: FAMILY PHYSICIAN: Medardo Mera MD ATTENDING PHYSICIAN: Angi Barton underwent cystoscopy with placement of indwelling right ureteral stent on July 15, 2016. Most recent stent exchange was performed October 21, 2016. She also underwent right extracorporeal shockwave lithotripsy October 21, 2016 and was noted to have some residual lower pole renal calculi following treatment. The patient was explained the risks, benefits, indications, and alternatives to above procedure and wished proceed and consented freely. DESCRIPTION OF PROCEDURE: The patient brought back to the operating room, where she was placed on the OR table in the supine position. A surgical time- out was called where patient identification, surgical site, and procedure was then verified. We also did verify that the patient received an IV antibiotic within an hour of beginning the procedure. The patient then underwent successful administration of monitored anesthesia care which was later transitioned to general endotracheal anesthesia. The patient had been placed in a low lithotomy position. Her genital area was then prepped and draped in the usual sterile fashion as well as removing her suprapubic tube catheter. I carefully advanced the cystoscope into the patient's bladder via the urethra. Her urethra was within normal limits. Upon entering her bladder, full diego cystoscopy was performed. Her bladder was negative for any bladder tumors or bladder stones. She did have a small capacity bladder with mild trabeculation and fibrous bands noted throughout. There was no evidence of any large diverticula. Her ureteral orifices were noted to be in their orthotopic location. I then used the stent graspers to grab the distal end of the indwelling right ureteral stent, brought this out through her urethral meatus. Then, through the stent, I advanced a Sensor guidewire up to the patient's right renal collecting system and removed the stent leaving the wire in place. I had also advanced a 2nd Sensor guidewire, now having [address] Then, over the wire, I advanced an open-ended ureteral access sheath, which I was easily passed up to her ureteropelvic junction. I then removed the inner sheath of the ureteral access sheath, and then carefully scanned her kidney with the digital flexible ureteroscope. I did come across the small pocket in her lower pole kidney with residual fragments noted. I did use the stone basket to carefully entrap multiple of the larger fragments which were sent for stone analysis. I also used the holmium laser fiber to carefully fragment any of the remaining stones up into very tiny pieces. Once I was complete, there were no large and no significant residual fragments noted following lithotripsy. I then carefully removed the ureteroscope, scanning the ureter, as I was removing it. There was no evidence of any stones along the ureter as well as no evidence of stricture along the ureter. Of note, she did have a duplicated collecting system down to her mid ureter which jointed with a single ureter. Both of these ureters did lead into her renal pelvis. Then, over the remaining wire, I advanced a 6-Latvian x 22 cm ureteral stent, deploying it, noting a good curl fluoroscopically in the patient's right renal collecting system as well as a good curl visually in the patient's bladder. I then readvanced with the rigid cystoscope and began performing cystoscopy with PATIENT'S NAME: LISANDRA SAUL [facility] AGE: 61 Y [address] ROOM: [place] [address] LOCATION: GPCU ADMIT DATE: 02/07/2017 OR/Procedure Report DISCHARGE DATE: FAMILY PHYSICIAN: Medardo Mera MD ATTENDING PHYSICIAN: Angi Barton bladder Botox injection. Of note, prior to commencement of the procedure. I had prepared the Botox freshly on a back table. I took 100 units and diluted it with 10 mL of preservative-free injectable saline to create a 10 unit/mL solution. I did this 3 times, now having 300 units in 30 mL. 1 mL was injected into each site at a depth of approximately 4 to 5 mm. I injected the lateral jackson, trigone, and posterior bladder wall. Once all 30 sites were injected, we then decompressed the bladder. I inspected for hemostasis, which did appear to be excellent. Her suprapubic tube catheter was then placed using a new 24-Latvian silicone Pascal catheter with 20 mL of sterile water in the balloon. This was placed to gravity drainage. The patient was then taken out of the lithotomy position where she was then transferred over to the recovery bed and transferred to the recovery room in good condition. The patient had been extubated without event and was doing well in recovery room. COMPLICATIONS: None. DRAINS: Indwelling 6-Latvian x 22 cm right ureteral stent and indwelling suprapubic tube catheter 24-Latvian. ESTIMATED BLOOD LOSS: Minimal. FOLLOWUP PLAN: We will plan to see the patient back for followup in Urology Clinic in 1 month for routine suprapubic tube catheter exchange. We will then plan for repeat cystoscopy with bladder Botox injection and possible right stent exchange versus removal at that time. TATA BARRETO MD GP/ha /[id number] d: 02/13/17 1551 t: 02/14/17 1016, OPERATIVE SUMMARY
[~2017-02-07 11:41] MED LIST changes: +LEVAQUIN750 MG PO; +POTASSIUM GLUCO99 MG PO; +STOOL SOFTENER1 EAC2 PO
[2017-02-07 12:47] LABS: BILIRUBIN URINE NEGATIVE (NEGATIVE); BLOOD URINE 250 /UL (NEGATIVE); COLOR URINE YELLOW (YELLOW); GLUCOSE URINE NEGATIVE (NEGATIVE); KETONE URINE NEGATIVE (NEGATIVE); LEUKOCYTES URINE 500 /UL (NEGATIVE); NITRITE URINE NEGATIVE (NEGATIVE); PROTEIN URINE 500 mg/dL (NEGATIVE); TURBIDITY URINE 3+ (CLEAR); UROBILINOGEN URINE NORMAL (NORMAL)
[2017-02-07 12:56] LABS: WBC URINE PACKED FIELD #/HPF (NEGATIVE)
[2017-02-07 12:57] LABS: AMORPHOUS URINE 2+ (NEGATIVE); BACTERIA URINE MANY (NEGATIVE); EPITHELIAL URINE RARE #/HPF (NEGATIVE); MUCUS URINE 1+ (NEGATIVE); RBC URINE 50-100 #/HPF (NEGATIVE)
[2017-02-07 12:58] LABS: WBC CLUMPS URINE MODERATE (NEGATIVE)
[2017-02-07 13:14] LABS: BASOPHIL % 0.6 %; EOSINOPHIL # 0.2 K/uL (0.0-0.5); EOSINOPHIL % 3.3 %; HEMATOCRIT 35.4 % (33.0-46.0); HEMOGLOBIN 10.7 g/dL (10.0-15.0); IMMATURE GRANULOCYTE % 0.5 %; LYMPHOCYTE # 1.8 K/uL (0.8-4.0); LYMPHOCYTE % 27.5 %; MCH 26.2 pg (27.0-34.0); MCHC 30.2 gm/dL (32.0-36.5); MCV 86.6 fl (83.0-98.0); MONOCYTE # 0.5 K/uL (0.0-1.0); MONOCYTE % 7.3 %; MPV 9.9 fl (9.4-12.4); NEUTROPHIL % 60.8 %; NRBC % 0 /100WBC (0-0.00); RBC 4.09 M/uL (3.50-5.50); WBC 6.6 K/uL (4.0-11.0)
[2017-02-07 13:15] LABS: PLATELET COUNT 372 K/uL (150-450)
[2017-02-07 13:30] LABS: ALBUMIN 2.9 gm/dL (3.5-5.0); ANION GAP 11.2 (10.0-19.0); CALCIUM 8.8 mg/dL (8.5-10.5); CREATININE 1.3 mg/dL (0.5-1.1); POTASSIUM 5.2 mMol/L (3.7-5.1); TOTAL BILIRUBIN 0.1 mg/dL (0.0-1.5)
[2017-02-08 04:50] LABS: BASOPHIL % 0.6 %; EOSINOPHIL # 0.2 K/uL (0.0-0.5); EOSINOPHIL % 4.4 %; HEMATOCRIT 30.8 % (33.0-46.0); HEMOGLOBIN 9.3 g/dL (10.0-15.0); IMMATURE GRANULOCYTE % 0.2 %; LYMPHOCYTE # 1.8 K/uL (0.8-4.0); LYMPHOCYTE % 34.8 %; MCH 26.1 pg (27.0-34.0); MCHC 30.2 gm/dL (32.0-36.5); MCV 86.3 fl (83.0-98.0); MONOCYTE # 0.4 K/uL (0.0-1.0); MONOCYTE % 7.1 %; MPV 9.7 fl (9.4-12.4); NEUTROPHIL # (ANC) 2.8 K/uL (1.8-7.8); NEUTROPHIL % 52.9 %; NRBC % 0 /100WBC (0-0.00); RBC 3.57 M/uL (3.50-5.50); RDW-CV 15.9 % (11.9-14.6); WBC 5.2 K/uL (4.0-11.0)
[2017-02-08 04:54] LABS: PLATELET COUNT 288 K/uL (150-450)
[2017-02-08 05:05] LABS: ALBUMIN 2.5 gm/dL (3.5-5.0); ANION GAP 10.4 (10.0-19.0); BLOOD UREA NITROGEN 22 mg/dL (6-24); CALCIUM 8.3 mg/dL (8.5-10.5); CHLORIDE 111 mMol/L (96-110); CO2 28 mMol/L (22-32); CREATININE 0.7 mg/dL (0.5-1.1); MAGNESIUM 1.9 mg/dL (1.8-2.6); PHOSPHORUS 3.3 mg/dL (2.5-4.9); POTASSIUM 4.4 mMol/L (3.7-5.1); SODIUM 145 mMol/L (135-145)
[2017-02-09 06:44] LABS: BASOPHIL % 0.7 %; EOSINOPHIL # 0.3 K/uL (0.0-0.5); EOSINOPHIL % 4.8 %; HEMATOCRIT 31.4 % (33.0-46.0); HEMOGLOBIN 9.7 g/dL (10.0-15.0); IMMATURE GRANULOCYTE % 0.2 %; LYMPHOCYTE # 1.5 K/uL (0.8-4.0); LYMPHOCYTE % 26.6 %; MCH 26.1 pg (27.0-34.0); MCHC 30.9 gm/dL (32.0-36.5); MCV 84.6 fl (83.0-98.0); MONOCYTE # 0.4 K/uL (0.0-1.0); MONOCYTE % 7.3 %; MPV 9.4 fl (9.4-12.4); NEUTROPHIL # (ANC) 3.3 K/uL (1.8-7.8); NEUTROPHIL % 60.4 %; NRBC % 0 /100WBC (0-0.00); PLATELET COUNT 306 K/uL (150-450); RBC 3.71 M/uL (3.50-5.50); RDW-CV 15.7 % (11.9-14.6); WBC 5.5 K/uL (4.0-11.0)
[2017-02-09 07:07] LABS: ALBUMIN 2.7 gm/dL (3.5-5.0); CALCIUM 8.8 mg/dL (8.5-10.5); CO2 30 mMol/L (22-32); CREATININE 0.7 mg/dL (0.5-1.1); MAGNESIUM 1.7 mg/dL (1.8-2.6); PHOSPHORUS 3.2 mg/dL (2.5-4.9)
[2017-02-09 07:16] LABS: ANION GAP 10.1 (10.0-19.0); CHLORIDE 107 mMol/L (96-110); POTASSIUM 4.1 mMol/L (3.7-5.1); SODIUM 143 mMol/L (135-145)
[2017-02-09 07:17] LABS: BLOOD UREA NITROGEN 10 mg/dL (6-24)
[2017-02-10 06:35] LABS: BASOPHIL % 0.6 %; EOSINOPHIL # 0.2 K/uL (0.0-0.5); EOSINOPHIL % 3.9 %; HEMATOCRIT 31.5 % (33.0-46.0); HEMOGLOBIN 9.9 g/dL (10.0-15.0); IMMATURE GRANULOCYTE % 0.6 %; LYMPHOCYTE # 1.6 K/uL (0.8-4.0); LYMPHOCYTE % 30.3 %; MCH 25.8 pg (27.0-34.0); MCHC 31.4 gm/dL (32.0-36.5); MCV 82.2 fl (83.0-98.0); MONOCYTE # 0.4 K/uL (0.0-1.0); MONOCYTE % 7.9 %; MPV 9.6 fl (9.4-12.4); NEUTROPHIL # (ANC) 3.1 K/uL (1.8-7.8); NEUTROPHIL % 56.7 %; NRBC % 0 /100WBC (0-0.00); PLATELET COUNT 308 K/uL (150-450); RBC 3.83 M/uL (3.50-5.50); RDW-CV 15.9 % (11.9-14.6); WBC 5.4 K/uL (4.0-11.0)
[2017-02-10 06:53] LABS: ALBUMIN 2.4 gm/dL (3.5-5.0); BLOOD UREA NITROGEN 12 mg/dL (6-24); CALCIUM 8.2 mg/dL (8.5-10.5); CHLORIDE 110 mMol/L (96-110); CO2 27 mMol/L (22-32); CREATININE 0.6 mg/dL (0.5-1.1); PHOSPHORUS 2.9 mg/dL (2.5-4.9); SODIUM 144 mMol/L (135-145)
[2017-02-10 06:56] LABS: MAGNESIUM 1.8 mg/dL (1.8-2.6)
[2017-02-11 04:07] LABS: BASOPHIL % 0.5 %; EOSINOPHIL # 0.2 K/uL (0.0-0.5); EOSINOPHIL % 3.7 %; HEMATOCRIT 31.7 % (33.0-46.0); HEMOGLOBIN 9.8 g/dL (10.0-15.0); IMMATURE GRANULOCYTE % 0.2 %; LYMPHOCYTE # 1.8 K/uL (0.8-4.0); LYMPHOCYTE % 29.8 %; MCH 25.9 pg (27.0-34.0); MCHC 30.9 gm/dL (32.0-36.5); MCV 83.6 fl (83.0-98.0); MONOCYTE # 0.5 K/uL (0.0-1.0); MONOCYTE % 7.9 %; MPV 9.6 fl (9.4-12.4); NEUTROPHIL # (ANC) 3.4 K/uL (1.8-7.8); NEUTROPHIL % 57.9 %; NRBC % 0 /100WBC (0-0.00); PLATELET COUNT 301 K/uL (150-450); RBC 3.79 M/uL (3.50-5.50); RDW-CV 15.9 % (11.9-14.6); WBC 5.9 K/uL (4.0-11.0)
[2017-02-11 04:23] LABS: ALBUMIN 2.5 gm/dL (3.5-5.0); ANION GAP 10.2 (10.0-19.0); BLOOD UREA NITROGEN 18 mg/dL (6-24); CALCIUM 8.2 mg/dL (8.5-10.5); CHLORIDE 103 mMol/L (96-110); CO2 29 mMol/L (22-32); CREATININE 0.7 mg/dL (0.5-1.1); MAGNESIUM 2.1 mg/dL (1.8-2.6); PHOSPHORUS 2.4 mg/dL (2.5-4.9); POTASSIUM 4.2 mMol/L (3.7-5.1); SODIUM 138 mMol/L (135-145)
[2017-02-12 03:42] LABS: BASOPHIL % 0.5 %; EOSINOPHIL # 0.3 K/uL (0.0-0.5); EOSINOPHIL % 3.5 %; HEMATOCRIT 32.7 % (33.0-46.0); HEMOGLOBIN 10.1 g/dL (10.0-15.0); IMMATURE GRANULOCYTE % 0.3 %; LYMPHOCYTE # 1.8 K/uL (0.8-4.0); LYMPHOCYTE % 24.5 %; MCH 26.2 pg (27.0-34.0); MCHC 30.9 gm/dL (32.0-36.5); MCV 84.7 fl (83.0-98.0); MONOCYTE # 0.6 K/uL (0.0-1.0); MONOCYTE % 8.1 %; NEUTROPHIL # (ANC) 4.7 K/uL (1.8-7.8); NEUTROPHIL % 63.1 %; NRBC % 0 /100WBC (0-0.00); PLATELET COUNT 319 K/uL (150-450); RBC 3.86 M/uL (3.50-5.50); RDW-CV 16.1 % (11.9-14.6); WBC 7.4 K/uL (4.0-11.0)
[2017-02-12 03:59] LABS: ALBUMIN 2.7 gm/dL (3.5-5.0); ANION GAP 11.2 (10.0-19.0); BLOOD UREA NITROGEN 23 mg/dL (6-24); CHLORIDE 102 mMol/L (96-110); CO2 30 mMol/L (22-32); CREATININE 0.7 mg/dL (0.5-1.1); MAGNESIUM 2.4 mg/dL (1.8-2.6); PHOSPHORUS 2.9 mg/dL (2.5-4.9); POTASSIUM 4.2 mMol/L (3.7-5.1); SODIUM 139 mMol/L (135-145)
[2017-02-13 05:21] LABS: BASOPHIL % 0.7 %; EOSINOPHIL # 0.3 K/uL (0.0-0.5); HEMATOCRIT 31.2 % (33.0-46.0); HEMOGLOBIN 9.6 g/dL (10.0-15.0); IMMATURE GRANULOCYTE % 0.2 %; LYMPHOCYTE # 1.9 K/uL (0.8-4.0); LYMPHOCYTE % 34.5 %; MCHC 30.8 gm/dL (32.0-36.5); MCV 84.6 fl (83.0-98.0); MONOCYTE # 0.5 K/uL (0.0-1.0); MONOCYTE % 9.3 %; MPV 9.8 fl (9.4-12.4); NEUTROPHIL # (ANC) 2.7 K/uL (1.8-7.8); NEUTROPHIL % 49.3 %; NRBC % 0 /100WBC (0-0.00); PLATELET COUNT 271 K/uL (150-450); RBC 3.69 M/uL (3.50-5.50); RDW-CV 15.7 % (11.9-14.6); WBC 5.5 K/uL (4.0-11.0)
[2017-02-13 05:40] LABS: ALBUMIN 2.5 gm/dL (3.5-5.0); ANION GAP 9.5 (10.0-19.0); BLOOD UREA NITROGEN 24 mg/dL (6-24); CALCIUM 8.8 mg/dL (8.5-10.5); CHLORIDE 104 mMol/L (96-110); CO2 30 mMol/L (22-32); CREATININE 0.7 mg/dL (0.5-1.1); MAGNESIUM 2.1 mg/dL (1.8-2.6); PHOSPHORUS 3.5 mg/dL (2.5-4.9); POTASSIUM 3.5 mMol/L (3.7-5.1); SODIUM 140 mMol/L (135-145)
[2017-02-14 04:58] LABS: BASOPHIL % 0.4 %; EOSINOPHIL # 0.2 K/uL (0.0-0.5); EOSINOPHIL % 2.2 %; HEMATOCRIT 30.8 % (33.0-46.0); HEMOGLOBIN 9.5 g/dL (10.0-15.0); IMMATURE GRANULOCYTE % 0.4 %; LYMPHOCYTE % 10.7 %; MCH 25.6 pg (27.0-34.0); MCHC 30.8 gm/dL (32.0-36.5); MONOCYTE # 0.5 K/uL (0.0-1.0); MONOCYTE % 5.3 %; NEUTROPHIL # (ANC) 7.9 K/uL (1.8-7.8); NRBC % 0 /100WBC (0-0.00); PLATELET COUNT 223 K/uL (150-450); RBC 3.71 M/uL (3.50-5.50); RDW-CV 15.9 % (11.9-14.6); WBC 9.8 K/uL (4.0-11.0)
[2017-02-14 05:15] LABS: ALBUMIN 2.3 gm/dL (3.5-5.0); BLOOD UREA NITROGEN 21 mg/dL (6-24); CALCIUM 8.4 mg/dL (8.5-10.5); CHLORIDE 107 mMol/L (96-110); CO2 25 mMol/L (22-32); CREATININE 0.7 mg/dL (0.5-1.1); PHOSPHORUS 3.2 mg/dL (2.5-4.9); SODIUM 140 mMol/L (135-145)
[2017-02-14 05:18] LABS: ANION GAP 12.7 (10.0-19.0); MAGNESIUM 1.9 mg/dL (1.8-2.6); POTASSIUM 4.7 mMol/L (3.7-5.1)
[2017-02-14] MEDS ORDERED: TYLENOL EXTRA500 MG PO (11:54)
[2017-02-14] MEDS ORDERED: FLORASTOR250 MG PO (12:00)
[2017-02-14] MEDS ORDERED: DOXYCYCLINE100 MG PO (12:07)
== END 2017-02-14 14:00 | disposition disaster alternative care site (69) | DRG 698 ==
LOC: GMED 11:41 → GPCU 14:54 → GMSU 02-13 15:30
PROVIDERS: Family Medicine; ADMIT Internal Medicine
PROC: 0TP98DZ Removal of Intraluminal Device from Ureter, Via Natural or Artificial Opening Endoscopic (ICD-10-PCS; principal; 2017-02-13)
PROC: 0T768DZ Dilation of Right Ureter with Intraluminal Device, Via Natural or Artificial Opening Endoscopic (ICD-10-PCS; 2017-02-13)
PROC: 3E0K8GC Introduction of Other Therapeutic Substance into Genitourinary Tract, Via Natural or Artificial Opening Endoscopic (ICD-10-PCS; 2017-02-13)
DX: T83.511A Infection and inflammatory reaction due to indwelling urethral catheter, initial encounter (principal); A41.02 Sepsis due to Methicillin resistant Staphylococcus aureus; G82.20 Paraplegia, unspecified; E11.9 Type 2 diabetes mellitus without complications; I10 Essential (primary) hypertension; D64.9 Anemia, unspecified; N13.6 Pyonephrosis; N31.9 Neuromuscular dysfunction of bladder, unspecified; N39.0 Urinary tract infection, site not specified; F31.9 Bipolar disorder, unspecified; G47.33 Obstructive sleep apnea (adult) (pediatric); J45.909 Unspecified asthma, uncomplicated; Z87.440 Personal history of urinary (tract) infections; R33.9 Retention of urine, unspecified
CPT/HCPCS: A9270; C1751; C1894; C2617; J0585; J0692; J1644; J1650; J1885; J2185; J2270; J2405; J3010; J3370; J7030; J7040; J7050

== ENCOUNTER 2017-02-18 05:08 | Inpatient (IN) | payer MEDICARE ==
[~2017-02-18] VITALS: Ht 172.7 cm; Wt 91.9 kg
--- NOTE | ~2017-02-18 | DS ---
PATIENT'S NAME: LISANDRA SAUL [facility] AGE: 61 Y [address] ROOM: [place] [address] LOCATION: [facility] [place] ADMIT DATE: 02/18/2017 Discharge Summary DISCHARGE DATE: 02/21/2017 FAMILY PHYSICIAN: Medardo Mera MD ATTENDING PHYSICIAN: Viktoriya Granados PRINCIPAL DIAGNOSES: 1. Complicated urinary tract infection. 2. Abdominal pain secondary to complicated urinary tract infection. 3. Neurogenic bladder, status post suprapubic catheter. 4. Paraplegia. 5. Iron deficiency anemia. 6. Diabetes mellitus type 2, insulin dependent. 7. Obstructive sleep apnea. 8. Morbid obesity. 9. Chronic constipation. 10. Essential hypertension. HOSPITAL COURSE: Please reference any of the admitting data to the history and physical as dictated by Dr. Sanjeev Angulo. A 61-year-old female who presented with abdominal pain and fever, who had been recently hospitalized and underwent treatment for a urinary tract infection that was cultured positive for MRSA as well as Pseudomonas. Returned to the emergency room for further evaluation. We did a CT scan of her abdomen that had shown some concerns for right kidney moderate pelvocaliectasis with dilatation concerning for possible ureteral stent obstruction. She also had a positive urinalysis and was started on IV antibiotics. She had no shift in her white blood cell count. CRP was elevated. Procalcitonin was low normal. She did improve. We asked Urology for consultation. He did not feel that the stent was obstructed, that was functioning properly. Her creatinine was normal. It was felt like there was no further intervention warranted. Cultured per urine did grow out Zulema greater than 100,000 counts, so she was started on fluconazole. We did ask Infectious Disease to evaluate the patient and was concerned that she may have been undertreated for the Pseudomonas in her urine previously as she only received a 7-day course, so she was started back on meropenem coverage as she has history of multiple allergies. She continued to improve and it was elected to treat her complex urine with both meropenem intravenously and fluconazole for a 14-day total. A PICC line was placed. Her abdominal pain did improve over the 48 hours since she was here. She did have some hypoglycemia secondary to her decreased oral intake. We did have to decrease her Levemir, which was equivalent to her Toujeo Pen. She will PATIENT'S NAME: LISANDRA SAUL [facility] AGE: 61 Y [address] ROOM: [id number] [place], [place] [address] LOCATION: [facility] [place] ADMIT DATE: 02/18/2017 Discharge Summary DISCHARGE DATE: 02/21/2017 FAMILY PHYSICIAN: Medardo Mera MD ATTENDING PHYSICIAN: Viktoriya Granados need close observation as she will be sent on a lower dose. She was given significant diabetes education. She was also known to be have anemia. We did check her iron studies, which showed an iron of less than 10, TIBC of 138, and percent saturation that was unreadable. Vitamin B12 and folate levels were okay. She was started on iron replacement at the time of discharge and placed on a more aggressive bowel regimen given her history of constipation. The remaining of her chronic conditions were maintained by her home medicines. DVT prophylaxis was maintained with pneumatic compression devices as well as heparin subcutaneous. LABORATORY DATA: Pertinent lab findings showed a positive urinalysis with culture growing Zulema greater than 100,000 count. Blood cultures at the time of discharge showed no growth to date. There was 2 bottles taken. Further lab investigation showed a normal creatinine of 0.9. CBC showed a normal white blood cell count. Hemoglobin of 9.7 and 8.3 respectively. Iron studies as described above. RADIOLOGIC IMAGING: Chest x-ray was stable and normal. CT of the abdomen and pelvis showed right kidney moderate pelvocaliectasis increased versus recent ultrasound. Ureteral stent in place with dilatation suggesting the possibility of stent occlusion. There were multiple small fragments in the right kidney and one tiny fragment at the UPJ, which correlates with the prior lithotripsy. CONSULTING PROVIDERS: 1. Urology, Dr. Barreto. 2. Infectious Disease, Dr. Castro. DISCHARGE MEDICATIONS: 1. Meropenem 500 mg IV every 6 hours x14 total days, stop date 03/04/2017 at 05:14 a.m. 2. Plavix 75 mg p.o. every day. 3. Cardizem 120 mg p.o. every day. 4. Doxepin 25 mg p.o. every night at bedtime. 5. Enalapril 20 mg p.o. every night at bedtime. 6. Escitalopram 20 mg p.o. every day. PATIENT'S NAME: LISANDRA SAUL [facility] AGE: 61 Y [address] ROOM: [place] [address] LOCATION: [facility] [place] ADMIT DATE: 02/18/2017 Discharge Summary DISCHARGE DATE: 02/21/2017 FAMILY PHYSICIAN: Medardo Mera MD ATTENDING PHYSICIAN: Viktoriya Granados 7. Gabapentin 600 mg p.o. 3 times daily. 8. Fluconazole 200 mg p.o. every day x14 days, stop date 03/04/2017 at 1800 hours. 9. Toujeo SoloStar Pen 50 units subcutaneously every day. 10. Lamictal 100 mg p.o. every night at bedtime. 11. Florastor 250 mg p.o. twice daily. 12. Zocor 40 mg p.o. every night at bedtime. 13. Glucophage 1000 mg p.o. twice daily. 14. Oxygen inhalation as needed per physician's instructions. 15. VESIcare 5 mg p.o. every day. 16. Potassium gluconate 99 mg p.o. every . 17. Sennosides/docusate combination 4 tablets p.o. every day. 18. Multivitamin 1 tablet p.o. every day. 19. Lactobacillus 2 capsules p.o. every day. 20. Trulicity 1.5 mg subcutaneously every 7 days. 21. Acetaminophen 1000 mg p.o. 4 times daily as needed. 22. Stop doxycycline. 23. MiraLax 17 grams p.o. twice daily. 24. Ferrous sulfate 325 mg p.o. twice daily. DISCHARGE INSTRUCTIONS: The patient will discharge to home with Home Health. A [id number] form was completed. Home infusion has arranged for first antibiotic this afternoon through her PICC line. PICC line cares will need to be routine with dressings changed twice per week and as needed. We do recommend that she checks her blood sugars twice daily and reports those findings to her primary care provider. Diet is to remain low-salt, diabetic. Activities as tolerated with fall precautions. She should follow up with Dr. Mera in the next 1 to 2 weeks as well as Dr. Barreto as previously scheduled. We would recommend that the patient does have a followup of her CBC and BMP at followup with Dr. Mera. New medications education was given on side affects. She was also instructed if she has worsening of her condition, fevers, drainage, or complications, to notify her home health nurse or primary care provider or return to the emergency room for further evaluation. Total time arranging discharge with care management, involvement, and direct coordination of care was greater than 30 minutes. Thank you for allowing us to participate in the care of this patient while at [facility]. PATIENT'S NAME: LISANDRA SAUL [facility] AGE: 61 Y [address] ROOM: [address] [address] LOCATION: [facility] [place] ADMIT DATE: 02/18/2017 Discharge Summary DISCHARGE DATE: 02/21/2017 FAMILY PHYSICIAN: Medardo Mera MD ATTENDING PHYSICIAN: Viktoriya Granados LEANDER Savannah RANOLD APRN, APRN FOR MD JACQUELYN BUENROSTRO/modl /[id number] CC: Medardo Mera MD d: t: 02/24/17 0850, DISCHARGE SUMMARY
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
--- NOTE | ~2017-02-18 | ER ---
PATIENT'S NAME: LISANDRA SAUL [facility] AGE: 61 Y [address] ROOM: [place] [address] LOCATION: [facility] [place] ADMIT DATE: 02/18/2017 ER/Outpatient Report DISCHARGE DATE: FAMILY PHYSICIAN: Medardo Mera MD ATTENDING PHYSICIAN: Sanjeev Angulo CHIEF COMPLAINT: Abdominal pain. I received care of this patient from Dr. Perez at 0600 hours. The patient has had abdominal pain since she was discharged from the hospital, and it has been getting worse. It is upper, radiates down the right side, and is across the back. The pain is sharp in nature. It is associated with poor appetite and nausea. She states she has been passing gas and having stool. Of note, she recently had a lithotripsy and cystoscopy in the hospital and is currently on doxycycline. She has just not been feeling well, and today was even worse, and that is what prompted her to come in. I reviewed her labs and noted that she has no significant systemic signs of infection other than a lactate of 2.3. CMS with no appreciable abnormalities. Lipase was within normal limits. CRP has climbed to 14.5. Urinalysis is notable for 500 leukocytes, 100 protein, and 250 blood and a micro with packed field of white cells, 20 to 50 rbc's, no epithelials, and many bacteria. CT scan reveals a more dilated right kidney than previous ultrasound. Overall, I did determine that it was in this patient's best interest for observation. I did discuss the case with Dr. Adame, on-call urologist. There is no definitive cause for intervention at this time. We will start her on initially cefepime; however, it became clear that she had adverse reaction to same, and thus, she was changed to meropenem. She will be admitted to the Hospitalist Service under Dr. Angulo for further evaluation and treatment of this fever with UTI and possible renal dilation on the right. MD PJ CH/ha /[id number] d: 02/18/17 1405 t: 02/24/17 0633, OUTPATIENT REPORT
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
[~2017-02-18 05:08] MED LIST changes: +FLORASTOR250 MG PO
[2017-02-18 06:01] LABS: BASOPHIL % 0.4 %; EOSINOPHIL # 0.3 K/uL (0.0-0.5); EOSINOPHIL % 3.4 %; HEMATOCRIT 31.4 % (33.0-46.0); HEMOGLOBIN 9.7 g/dL (10.0-15.0); IMMATURE GRANULOCYTE % 0.3 %; LYMPHOCYTE # 1.2 K/uL (0.8-4.0); MCHC 30.9 gm/dL (32.0-36.5); MCV 84.2 fl (83.0-98.0); MONOCYTE # 0.7 K/uL (0.0-1.0); MONOCYTE % 8.5 %; MPV 9.8 fl (9.4-12.4); NEUTROPHIL # (ANC) 5.7 K/uL (1.8-7.8); NEUTROPHIL % 72.4 %; NRBC % 0 /100WBC (0-0.00); RBC 3.73 M/uL (3.50-5.50); RDW-CV 15.7 % (11.9-14.6); WBC 7.9 K/uL (4.0-11.0)
[2017-02-18 06:02] LABS: PLATELET COUNT 341 K/uL (150-450)
[2017-02-18 06:03] LABS: BILIRUBIN URINE NEGATIVE (NEGATIVE); BLOOD URINE 250 /UL (NEGATIVE); COLOR URINE YELLOW (YELLOW); GLUCOSE URINE NEGATIVE (NEGATIVE); KETONE URINE NEGATIVE (NEGATIVE); LEUKOCYTES URINE 500 /UL (NEGATIVE); NITRITE URINE NEGATIVE (NEGATIVE); PROTEIN URINE 100 mg/dL (NEGATIVE); SPEC GRAVITY URINE 1.015 (1.003-1.035); TURBIDITY URINE 3+ (CLEAR); UROBILINOGEN URINE NORMAL (NORMAL)
[2017-02-18 06:20] LABS: ALBUMIN 2.3 gm/dL (3.5-5.0); ANION GAP 12.8 (10.0-19.0); CALCIUM 8.4 mg/dL (8.5-10.5); CREATININE 0.9 mg/dL (0.5-1.1); POTASSIUM 3.8 mMol/L (3.7-5.1); TOTAL PROTEIN 6.2 g/dL (6.0-8.4)
[2017-02-18 06:23] LABS: TOTAL BILIRUBIN 0.2 mg/dL (0.0-1.5)
[2017-02-18 06:29] LABS: WBC URINE PACKED FIELD #/HPF (NEGATIVE)
[2017-02-18 06:30] LABS: BACTERIA URINE MANY (NEGATIVE); EPITHELIAL URINE NEGATIVE #/HPF (NEGATIVE); MUCUS URINE 1+ (NEGATIVE); RBC URINE 20-50 #/HPF (NEGATIVE)
[2017-02-18 06:31] LABS: AMORPHOUS URINE 1+ (NEGATIVE); WBC CLUMPS URINE MODERATE (NEGATIVE); YEAST URINE MANY (NEGATIVE)
--- NOTE | 2017-02-18 18:24 | NUR ---
AAO X3. FULL LIFT. PARAPALEGIC HELPFUL WITH REPOSITIONING. DIABETIC DIET TOLERATED WELL. IV TO LEFT INNER FOREARM NS RUNNING. INTERMITTENT ANTIBIOTICS. SUPRAPUBIC CATHETER DRAINING PURULENT YELLOW. WOC CONSULT. REPOSITION FREQUENTLY. PRN ULTRAM X2 AND ZOFRAN X1 GIVEN WITH RELIEF NOTED. FULL CODE.
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
[2017-02-19 04:30] LABS: BASOPHIL % 0.4 %; EOSINOPHIL # 0.2 K/uL (0.0-0.5); EOSINOPHIL % 2.5 %; HEMATOCRIT 26.5 % (33.0-46.0); HEMOGLOBIN 8.3 g/dL (10.0-15.0); IMMATURE GRANULOCYTE % 0.4 %; LYMPHOCYTE # 1.5 K/uL (0.8-4.0); LYMPHOCYTE % 21.9 %; MCH 26.4 pg (27.0-34.0); MCHC 31.3 gm/dL (32.0-36.5); MCV 84.4 fl (83.0-98.0); MONOCYTE # 0.7 K/uL (0.0-1.0); MONOCYTE % 9.5 %; MPV 9.7 fl (9.4-12.4); NEUTROPHIL # (ANC) 4.4 K/uL (1.8-7.8); NEUTROPHIL % 65.3 %; NRBC % 0 /100WBC (0-0.00); PLATELET COUNT 310 K/uL (150-450); RBC 3.14 M/uL (3.50-5.50); RDW-CV 15.9 % (11.9-14.6); WBC 6.8 K/uL (4.0-11.0)
[2017-02-19 04:47] LABS: ANION GAP 9.5 (10.0-19.0); CALCIUM 8.5 mg/dL (8.5-10.5); CREATININE 0.9 mg/dL (0.5-1.1); POTASSIUM 3.5 mMol/L (3.7-5.1)
--- NOTE | 2017-02-19 07:05 | NUR ---
Significant Event: Patient is alert and oriented x 3. VSS on room air. Full lift. Reposition q2 hours. Incontinent of stool, no BMs this shift. Suprapubic catheter intact, 1625 mls out this shift. Left forearm IV with NS running at 100 ml/hr. Receiving intermittent IV antibiotics. Zofran given x 1 at 2216. ACHS accuchecks. Awoke patient for 2nd assessment, patient was shaky, lethargic, and stating odd comments. Checked blood sugar, it was 39. Rechecked sugar right away, it was 44. Gave patient milk and jonathan crackers. Rechecked 15 minutes later, it was 62. Gave 1/2 amp of dextrose IVP, rechecked in less than 15 minutes, blood sugar was 152. MD called, order to check blood sugar q2 hours x 3 and to have MD in am address qHS Levemir dose. Last blood sugar check was at 0600 and it was 89. Patient is pleasant and cooperative with cares. Follow up:
--- NOTE | 2017-02-19 08:10 | NUR ---
Diabetes consult: Patient referral received indicating that the patient had a low blood sugar upon converting Toujeo to Levemir. Patient is laying in bed with her at the bedside on my arrival. The patient's reports the patient was admitted yesterday morning. She had taken her home dose of Toujeo 60 units at HS on 02/17. The patient reports she has not been eating or taking anything po. At 1033 yesterday (02/18) her blood sugar dropped to 53. Blood sugars stabilized throughout the day returning to 100, 180 and 133. She was given Levemir 60 units subq at 2200 on 02/18. There is a one to one conversion when transitioning a patient from Toujeo to Levemir. The patient did have hypoglcyemic events today. Suspect the lack of po intake contributed. Recommendation left to the chart to consider reducing her basal dose by 50% at HS (Levemir 30 units) due to poor intake. Will continue to follow.
--- NOTE | 2017-02-19 12:00 | NUR ---
SPOKE TO PATIENT AND HER SPOUSE REGARDING CM AND OUR ROLE. PATIENT LIVES IN OWN HOME WITH HER SPOUSE AND HAS BEEN GETTING [facility] THROUGH [facility]. I UPDATED HER THAT SHE WILL NEED TO HAVE IV MEROPENEM IV EVERY 6 HOURS FOR TWO WEEKS.AND PRESENTED TO HER THE OPTION OF GOING HOME WITH [facility] OR HOME INFUSION. PATIENT TELLS ME THAT SHE HAS HAD HOME INFUSION IN THE PAST FROM [facility] AND THAT IS WHO SHE WANTS TO USE AGAIN. LISANDRA AND HER SPOUSE FEEL THAT THEY CAN LEARN HOW TO ADMINISTER THE MEEROPENEM. I SPOKE MAURICIO AT [facility] AND UPDATED HER ON THE DISCHARGE PLANS THAT PATIENT IS GOING TO NEED IV MEROPENEM EVERY 6 HOURS THAT SHE WANTS HOME INFUSION, AND THAT SHE WILL BE GETTING PIC TODAY [facility] HOPES OF BEING DISCHARGE HOME TOMORROW.
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
--- NOTE | 2017-02-19 14:20 | NUR ---
CHEVY Ruelas, updated me on patient. I contacted [facility] at [phone] to arrange for the IV antibiotics. Faxed the information to Kat at [facility] . Kat called me at 1400 and states she will check patient's benefits and plan to call me back once she knows what they are. She also said to plan on patient being here for her 1100 dose tomorrow and then discharge her to home. [facility] will have the medication delivered to her home in time for the 1700 dose. Contacted Cecily at [facility] at [phone] and informed her that the plan is for patient to discharge to home after the 1100 dose tomorrow. Cecily states she is off tomorrow, but she will share this information with the nurse that will be environmental director and overseeing Liya's care tomorrow. Will fax discharge orders and face to face to [facility] and to [facility] tomorrow.
--- NOTE | 2017-02-19 14:30 | NUR ---
Significant Event: IV restarted this a.m. to right hand-22 gauge, as other IV had infiltrated. Mike with vascular access nurse in and is going to try and get another line that can hold us until tomorrow. PICC to be placed but wanting to have patient on IV antibiotics for 24-48 hours first. Have fought with patient's blood sugars throughout the day. Patient was eating a snack and then STOREROOM SUPERVISOR was going to check blood sugar and we are to call with results. Patient repositioned in bed every 2-3 hours. Follow up: Patient will need IV antibiotics for total of 14 days and will need PICC line tomorrow.
--- NOTE | 2017-02-19 16:41 | NUR ---
Phone call from Kat with [facility] stating she checked patient's benefits and it will cost her just over $550 out of pocket for the IV antibiotic/Home Infusion for the 14 days of treatment. I met with patient and explained this to her. She then called her on the phone and shared with him the out of pocket expense. They both verbalized their understanding and we will proceed with making the arrangements for the home infusion. I also spoke to patient's nurse Shakila SOSA and charge nurse Samia RN about the plan for patient tomorrow. Plan is to administer her 0500 and 1100 dose here at the hospital and then discharge to home and she will receive her 1700 dose at home.There is a concern about patient being able to discharge in a timely manner because she did not get the PICC line today. Shakila called Mike and he does not think it will be a problem to get her PICC line done before the 1100 dose tomorrow. He is aware of the time period we are on with setting up home infusion to have the medication to her in a timely manner. Home infusion is sending a pump that will run for her and home health with go out approximately 3 times during the 14 days to hang and program the pump for the medication to run. Patient is aware of this and thinks this is the best option for her. Note left on the front of the chart for Dr. Granados so he know the plan for tomorrow and I spoke to him on the phone updating him.
--- NOTE | 2017-02-20 06:09 | NUR ---
Significant Event: Patient alert and oriented. Repositioned in bed. VSS on room air. SP cath with 2900 ml urine out. Tramadol given x1 for pain with relief noted. Pleasant and cooperative with cares. Follow up: continue, PICC placement today.
--- NOTE | 2017-02-20 10:16 | NUR ---
Received a fax from Kat with [facility] last night stating she needs patient to sign the documents she faxed over. Met with patient at 0815 today and had her sign the forms for Kat. Faxed these back to Kat at [facility] at 0905. Also had a call from Cecily with [facility]. She asked me how often they will need to go to the home to change the antibiotic bag. I informed her that I was not sure if that will be once a day and encouraged her to call Kta at [facility] and I gave her Kat's number. Will fax discharge orders to both of them once we have them completed.
[2017-02-20 10:55] LABS: ANION GAP 9.8 (10.0-19.0); CALCIUM 8.8 mg/dL (8.5-10.5); CREATININE 0.8 mg/dL (0.5-1.1); POTASSIUM 3.8 mMol/L (3.7-5.1)
--- NOTE | 2017-02-20 11:48 | NUR ---
Diabetes center note: Continue to trend blood sugars, since lows a couple of days ago. FBS this a.m. was 166, Levemir insulin was discontinued on 02/19/17 and started her back on home insulin Toujeo 40 units, PLUS moderate sliding scale insulin Novolog Will continue to follow.
[2017-02-20] MEDS ORDERED: MIRALAX17 GM PO (14:13)
[2017-02-20] MEDS ORDERED: FEOSOL325 MG PO (14:14)
[2017-02-20] MEDS ORDERED: ULTRAM50 MG PO (14:15)
[2017-02-20] MEDS ORDERED: DIFLUCAN200 MG PO (14:19)
[2017-02-20] MEDS ORDERED: MERREM IV500 MG IV (14:22)
--- NOTE | 2017-02-20 15:15 | NUR ---
DISCHARGE NOTE: D: ORDERS RECEIVED FOR THE PATIENT TO BE DISCHARGED TO HOME TODAY WITH HOME HEALTH AND . I: DISMISSAL INSTRUCTIONS WERE PREPARED AND REVIEWED WITH THE PATIENT AND HER AT THE BEDSIDE BY THE VIRTUAL NURSE. THE FOLLOWING INFORMATION WAS DISCUSSED INCLUDING KRAMES SHEETS PROVIDED: UNDERSTANDING UTIS, DISCHARGE INSTRUCTIONS-CHANGING THE DRESSING ON YOUR PICC, DISCHARGE INSTRUCTIONS-CARING FOR YOUR PICC, FLUSHING YOUR PICC LINE AT HOME, MEROPENEM, FLUCONAZOLE, ULTRAM, MIRALAX, FERROUS SULFATE, ADDING FLAVOR TO LOW FAT MEALS, LOW FAT COOKING TIPS, DISCHARGE INSTRUCTIONS-EATING A LOW SALT DIET, AND DIABETES-SHOPPING FOR AND PREPARING MEALS. REVIEWED SIDE EFFECTS OF NEW PRESCRIPTIONS AND THEY WILL NEED TO TAKE NEW PRESCRIPTIONS TO THE PHARMACY OF THEIR CHOICE TO GET THEM FILLED. R: BOTH THE PATIENT AND HER BOTH VERBALIZED UNDERSTANDING OF THE DISMISSAL EDUCATION AT THE TIME OF TEACHING WITH NO FURTHER QUESTIONS. P: THE ABOVE INFORMATION WAS SHARED WITH THE PRIMARY NURSE AND THE CHARGE NURSE THAT THE DISMISSAL EDUCATION WAS COMPLETED. THE PATIENT IS READY FOR DISCHARGE WHEN APPROPRIATE.
--- NOTE | 2017-02-20 15:57 | NUR ---
1600 Call from SHEILA Carranza, [id number], stating that Olive' got a call from SHEILA Jordan at [facility] stating that she had the medication for home infusion and was waiting at the house for them to do the home infusion treachings. Olive' told Nikki that Olive' PICC placement took longer than anticiapted and they hadn't even left our facility yet. Nikki then said that she wouldn't be able to do the teachings tonight as it would be to later for her and she had other admissions to get done yet today. I let Tere know that I would call and talk with Nikki at [facility] about this. I did call Nikki, , she says that she had been at the house waiting for them for sometime and then when she called and found out that they hadn't left yet, she wasn't going to be able to wait for them and couldn't do the teachings tonight. We then decided that Liya would have to wait to dismiss until tomorrow morning after her 0500 dose because she couldn't go home tonight and not have the teachings done for her home infusion. Nikki says that she will plan on meeting Liya in the morning. will call Nikki, he already has her cell phone number, when he leaves [facility] to go home so Nikki knows exactly when to be there to meet them. Nikki is going to take home the IV Abxs with her so it is just not sitting outside all night long. Updated SHEILA Carranza to this, she updated Liya and to this for me. Also called and updated Gerald Truong and as well. All are in agreement with the plan to have her stay this evening for her 2300 and 0500 does of IV Abxs and then go home after that is done. [facility] SHEILA Jordan will meet them out there before her 1100 dose. CM to continue to follow and assist.
--- NOTE | 2017-02-20 16:18 | NUR ---
Significant Event: Patient was supposed to be discharged today, but PICC line placement took longer than expected and unable to coordinate with home health to show patient's how to administer the antibiotic. Plan now is for her to stay overnight for her doses of antibiotic through 0500 dose tomorrow a.m. will be here at 0800 tomorrow to get patient and take her home to be there in time for home health to see them tomorrow. Suzanne from care management helped to set this up with care management. Please remind patient and to call the home health nurse when they are officially dismissed. Patient now has a PICC to her right anterior upper arm-single lumen that flushes and has good blood return. Dismissal instructions have already been reviewed with patient and her , all they need is to make sure patient's tujeo insulin gets in the bag to go home with them. Follow up: Continue to monitor.
--- NOTE | 2017-02-21 04:58 | NUR ---
Significant Event: Sleeping well tonight. Afebrile, all other VSS. Alert and oriented. Repositioned frequently. Up to bedside commode with full lift. Denies pain. Drinking well. PICC to R) upper arm patent and saline locked. Suprapubic catheter intact, 1500ml cloudy, yellow urine out. Pleasant and cooperative with cares. Follow up:
--- NOTE | 2017-02-21 10:37 | NUR ---
PATIENT DISCHARGE PAPER WORK COMPLETED ON TESTER ARMATURE OR FIELDS. PATIENT DISCHARGED BY WHEELCHAIR WITH TO HOME WITH ALL PERSONAL BELONGININGS. PICC LINE INTACT IN RIGHT UPPER ARM FOR HOME HEALTH ANTIBIOTIC INFUSIONS.
== END 2017-02-21 09:30 | disposition home health service (06) | DRG 689 ==
LOC: GMED 05:08 → GMSU 08:55
PROVIDERS: Emergency Medicine; Nurse Practitioner Family; ADMIT Internal Medicine
PROC: 02HV33Z Insertion of Infusion Device into Superior Vena Cava, Percutaneous Approach (ICD-10-PCS; principal; 2017-02-20)
DX: N39.0 Urinary tract infection, site not specified (principal); L89.153 Pressure ulcer of sacral region, stage 3; G82.20 Paraplegia, unspecified; E44.0 Moderate protein-calorie malnutrition; E11.649 Type 2 diabetes mellitus with hypoglycemia without coma; N31.9 Neuromuscular dysfunction of bladder, unspecified; B37.49 Other urogenital candidiasis; E66.01 Morbid (severe) obesity due to excess calories; A49.02 Methicillin resistant Staphylococcus aureus infection, unspecified site; I10 Essential (primary) hypertension; N20.0 Calculus of kidney; F31.9 Bipolar disorder, unspecified; G47.33 Obstructive sleep apnea (adult) (pediatric); J45.909 Unspecified asthma, uncomplicated; Z68.30 Body mass index [BMI] 30.0-30.9, adult; Z88.1 Allergy status to other antibiotic agents; Z96.0 Presence of urogenital implants; Z87.442 Personal history of urinary calculi; K59.09 Other constipation; D50.9 Iron deficiency anemia, unspecified; L89.600 Pressure ulcer of unspecified heel, unstageable; B96.5 Pseudomonas (aeruginosa) (mallei) (pseudomallei) as the cause of diseases classified elsewhere
CPT/HCPCS: C1751; J1610; J1644; J2185; J2405; J7030; J7040; J7050

== ENCOUNTER 2017-03-04 14:17 | Inpatient (IN) | payer MEDICARE ==
[~2017-03-04] VITALS: Ht 172.7 cm; Wt 88.3 kg
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
--- NOTE | ~2017-03-04 | HP ---
PATIENT'S NAME: LISANDRA SAUL [facility] AGE: 61 Y [address] ROOM: [address] [place], [place] [address] LOCATION: GICU ADMIT DATE: 03/04/2017 History & Physical DISCHARGE DATE: FAMILY PHYSICIAN: Medardo Mera MD ATTENDING PHYSICIAN: Sanjeev Angulo DATE OF SERVICE: 03/04/2017 CHIEF COMPLAINT: Difficult to arouse. HISTORY OF PRESENT ILLNESS: This is a 61-year-old female, well known to [facility] as her recent struggles have been ongoing in regards to recurrent urinary tract infections with Pseudomonas and MRSA. Last admitted just within the last couple of weeks, who developed difficulty to arouse today as noted by her . Medical history is notable for paraplegia with a neurogenic bladder, chronic suprapubic catheter, insulin-dependent diabetes, obstructive sleep apnea, morbid obesity, bipolar disorder, and following recent hospital stay, she was continued on meropenem via a PICC line and continues on this currently. notes that the patient had not until this morning noted any new complaints including no recent fevers, chills, chest pain, shortness of breath, abdominal pain, urinary symptoms, or bowel symptoms. He does note that she had complained of her chronic right lower extremity leg pain, but was uncertain if this had been worse than usual. This morning, he attempted to awaken her and she was somewhat lethargic, which he attributed to her having had a busy day with family yesterday, and this is not out of the norm for her. However, around lunch time, she was not awakening to voice or physical stimulation prompting her presentation here. Upon arrival here, she was able to follow some commands, found to have a nonfocal neurologic exam. Temp was 99.9. She was found to have a potassium elevated at 6.8 and initial venous blood gas showed a pH of 7.26, pCO2 of 86, and pO2 of 54. Also of note on initial labs was that creatinine was mildly elevated from baseline 0.8 to 1.3 and troponin was mildly elevated at 0.044. This situation escalated quickly, and while in the emergency department, the patient was placed on BiPAP with subsequent drop in her blood pressure to 60s over 40s. 2 L IV fluid bolus were given rapidly and Levophed has been ordered. The patient was subsequently intubated and a central line was placed for further access all while in the ER. Hospitalist Service has been asked to admit the patient for ongoing cares and ICU Service has been consulted as well. PAST MEDICAL HISTORY: 1. Neurogenic bladder. 2. Paraplegia. 3. Chronic suprapubic catheter. PATIENT'S NAME: LISANDRA SAUL [facility] AGE: 61 Y [address] ROOM: [place] [address] LOCATION: GICU ADMIT DATE: 03/04/2017 History & Physical DISCHARGE DATE: FAMILY PHYSICIAN: Medardo Mera MD ATTENDING PHYSICIAN: Sanjeev Angulo 4. Recurrent complicated UTIs. 5. Iron deficiency anemia. 6. Insulin-dependent diabetes type 2. 7. Obstructive sleep apnea. 8. Morbid obesity. 9. Essential hypertension. 10. Bipolar disorder. PAST SURGICAL HISTORY: Recent manipulation of right ureteral stent, otherwise reviewed as per recent H and P. FAMILY HISTORY: History of heart disease and diabetes mellitus runs in family. Reviewed per chart, otherwise not able to be reviewed currently given acuity of illness. SOCIAL HISTORY: No recent tobacco, alcohol, or other ingestions. ALLERGIES: EXTENSIVE LIST INCLUDES PENICILLIN, SULFA, CODEINE, ASPIRIN, LANOLIN, LATEX, AND CEFEPIME. MEDICATIONS: Currently being reconciled, although has been on meropenem since recent hospital discharge. REVIEW OF SYSTEMS: Currently unobtainable from the patient, although this was obtained through discussion with the patient's at bedside and is negative except as noted above in HPI. PHYSICAL EXAMINATION: VITAL SIGNS: Temp 99.9, blood pressure is now 110s to 120s systolic after fluid bolus, currently intubated with respirations of 16, tidal volume approximately 500. Oxygen requirements are influx following intubation. GENERAL: The patient is unarousable, somnolent. HEENT: Head; normocephalic and atraumatic. Eyes are with pupils equal, round, reactive to light. Extraocular muscles are intact. No scleral icterus. No conjunctival injection. ENT intubated. Dry mucous membranes. No nasal discharge. NECK: Supple. No lymphadenopathy. No thyromegaly. CHEST: Heart sounds are distant, but regular. No murmur appreciated. Left subclavian line placed. Respirations are diminished throughout. No apparent wheezes or crackles are appreciated. The patient is intubated currently. PATIENT'S NAME: LISANDRA SAUL [facility] AGE: 61 Y [address] ROOM: [id number] [place], [place] [address] LOCATION: [facility] ADMIT DATE: 03/04/2017 History & Physical DISCHARGE DATE: FAMILY PHYSICIAN: Medardo Mera MD ATTENDING PHYSICIAN: Sanjeev Angulo ABDOMEN: Soft, obese. No grimace to palpation. Hypoactive bowel sounds. EXTREMITIES: With 1+ bilateral lower extremity edema, which is equal bilaterally. NEUROLOGIC: Per ER report was nonfocal, unable to complete currently as patient is unable to cooperate with exam. LABS AND IMAGING: White count 7.5, hemoglobin 10.7, platelets 512. Sodium 136, potassium 6.8, repeat pending. Chloride 101, bicarb 23, BUN 23, creatinine 1.3, glucose 151, calcium 8.5, protein 7.3, albumin 2.8, AST 16, ALT 14, alkaline phosphatase 66, total bilirubin 0.1, INR 1.01. Troponin 0.044. Blood cultures ordered and pending. CT head was negative. Tylenol and salicylate levels also negative. ASSESSMENT: 1. Shock. 2. Respiratory arrest with hypoxic and hypercarbic respiratory failure. 3. Metabolic encephalopathy, probable CO2 narcosis. 4. Chronic neurogenic bladder. 5. Recent urinary tract infection on current meropenem therapy. 6. Insulin-dependent diabetes type 2. 7. Obstructive sleep apnea. 8. Morbid obesity. 9. Essential hypertension. PLAN: The patient is critically ill with guarded prognosis. Care is evolving rapidly. The patient has been intubated with a central line placed and Levophed infusion initiated in the emergency department. Differential diagnosis at this point remains broad, but includes pulmonary embolism, seizure, narcotic ingestion. Meropenem can lower the seizure threshold. Difficult to determine etiology of hyperkalemia, repeat lab has been ordered to confirm this. Currently without elevated white count, the patient is afebrile and has been on ongoing broad-spectrum antibiotics. I have lower suspicion for sepsis as etiology though this will need to be monitored closely and broaden antibiotics as deemed necessary. Will continue meropenem for now. For hyperkalemia, the patient did receive D50 and insulin while in the emergency department. We will recheck this as soon as possible. It is uncertain what the causative etiology of this may have been though the patient does have a mild TITUS. We will continue ventilatory support currently as well. The patient was discussed face-to- face with Dr. Mera with critical care as well as Dr. Vieira in the emergency department. The patient is a full code. DISPOSITION: Guarded prognosis. at bedside is aware. PATIENT'S NAME: LISANDRA SAUL [facility] AGE: 61 Y [address] ROOM: [place] [address] LOCATION: [facility] ADMIT DATE: 03/04/2017 History & Physical DISCHARGE DATE: FAMILY PHYSICIAN: Medardo Mera MD ATTENDING PHYSICIAN: Sanjeev Angulo I spent 35 minutes of critical care time on date of admission reviewing recent records as well as in [id number] evaluation of the patient. MD JULITO DIAZ/modl /[id number] D: T: [id number] HISTORY & PHYSICAL
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
--- NOTE | ~2017-03-04 | CON ---
PATIENT'S NAME: LIYA SAUL [facility] AGE: 61 Y [address] ROOM: [address] [address] LOCATION: GICU ADMIT DATE: 03/04/2017 Consultation DISCHARGE DATE: FAMILY PHYSICIAN: Medardo Mera MD ATTENDING PHYSICIAN: Sanjeev Angulo DATE OF CONSULTATION: 03/04/2017 REFERRING PHYSICIAN: Bradley Terry MD TELESTROKE CONSULT NOTE: REASON FOR CONSULT: Stroke. HISTORY OF PRESENT ILLNESS: Liya Saul is a 61-year-old woman with history of hypertension, diabetes, hyperlipidemia, T7 paraplegia from a spinal cord injury. She has frequent urinary tract infections and urosepsis. She currently has a PICC line and has meropenem for possible urosepsis. This morning, her found her around 8 a.m. and she was lethargic. She was last known well at 8 p.m. last night. The patient's let her sleep and this afternoon her mentation was worse, so he brought her in to the ER. The patient arrived in the ER at 1418, a Telestroke consult was called at 1420, I arrived at 1428 and examined the patient at 1428. EXAM: On exam, the patient had a NIH stroke scale score of 19. The patient was awake but was not following commands, could not answer questions regarding her month or age. Her extraocular movements are intact. Her visual cunningham were full. There were no facial asymmetry. She had a bilateral upper extremity drift in her upper extremities. She was paraplegic in her lower extremities. There was no ataxia. She had no speech output. She was otherwise mute and there was no extinction. Her NIH stroke scale score again was 19. CT head was done and the case was reviewed with the ER attending at the bedside. ASSESSMENT AND PLAN: Altered mental status, as per the patient's . The patient's states that she has had multiple episodes of this in the past and this is similar to her previous admissions, although she is slightly worse. I recommend doing a toxic metabolic workup for her. The patient's altered respiratory status is a bit compromised. She is hypercarbic with an elevated CO2 in the 80s. She is a patient with sleep apnea and currently she is not breathing very well at this time and she has abdominal breathing. Recommended MRI of the brain without contrast when she is more clinically stable. The patient may require intubation if her respiratory status deteriorates in the PATIENT'S NAME: LIYA SAUL [facility] AGE: 61 Y [address] ROOM: [address] [address] LOCATION: [facility] ADMIT DATE: 03/04/2017 Consultation DISCHARGE DATE: FAMILY PHYSICIAN: Medardo Mera MD ATTENDING PHYSICIAN: Sanjeev Angulo near future. No further workup if the MRI is negative for stroke. MD TERENCE CAAL/ha /[id number] d: 03/04/172012 t: 03/05/17 1549, CONSULTATION REPORT
--- NOTE | ~2017-03-04 | DS ---
PATIENT'S NAME: LISANDRA SAUL [facility] AGE: 61 Y [address] ROOM: [id number] [place], [place] [address] LOCATION: [facility] ADMIT DATE: 03/04/2017 Discharge Summary DISCHARGE DATE: FAMILY PHYSICIAN: Medardo Mera MD ATTENDING PHYSICIAN: Sanjeev Angulo PRINCIPAL DIAGNOSES: 1. Acute hypoxic hypercapnic respiratory failure. 2. Seizure episode. 3. Asymptomatic bacteriuria. 4. Unresponsiveness. 5. Depression. 6. Hyperlipidemia. 7. Diabetes. 8. Hypertension. 9. Neurogenic bladder, status post suprapubic catheter. HOSPITAL COURSE: This is a 61-year-old female with recurrent admissions to the hospital, presented initially with unresponsiveness, and found to be in respiratory failure. Due to her unresponsiveness, she was intubated and admitted to the hospital. Upon extensive workup, the patient was not noted to have any metabolic derangements that will explain her initial presentation, but she was noted to be on multiple medications that could interact with one another and possibly causing seizure and working diagnosis that we have for her presentation is the patient having seizure and subsequently going into respiratory failure and from that in a postictal state. The patient of note has been on meropenem to finish antibiotic course at home from previous admission relating to complicated UTI. She is also on tramadol as well as an SSRI for depression and the combination of all of these medications interacting with one another can cause seizure. At this point, the patient had done remarkably well and was extubated next day and continued to do very well and did not have any further seizure-like episodes. At this point, we will recommend that the patient avoids any interacting medications including avoid unnecessary antibiotics use, especially with her known history of having suprapubic catheter and she always can be colonized with bacteria, if UA is checked without significant symptoms. In any case, should to try and avoid the use of meropenem as this is known to lower seizure threshold in addition to the other med that she is on as well. The patient was seen by intensive care unit and technician anatomic pathology as well as had neurology evaluation and were all in agreement that this most likely were caused her initial presentation. PHYSICAL EXAMINATION: GENERAL: The patient is today is awake, alert, oriented x3, in no acute distress. CHEST: Clear to auscultation bilaterally. HEART: S1, S2, regular rate and rhythm. PATIENT'S NAME: LISANDRA SAUL [facility] AGE: 61 Y [address] ROOM: [place] [address] LOCATION: GICU ADMIT DATE: 03/04/2017 Discharge Summary DISCHARGE DATE: FAMILY PHYSICIAN: Medardo Mera MD ATTENDING PHYSICIAN: Sanjeev Angulo ABDOMEN: Soft, nontender, nondistended. EXTREMITIES: Without edema. MEDICATIONS: Per MAR including discontinue tramadol use indefinitely as well as avoid use of antibiotics especially meropenem as much as possible. DISPOSITION: To home and will follow up with PCP within 1 week. Greater than 30 minutes were spent in discharge planning and facilitating. MD DARIUSZ SANCHEZ/ha /[id number] d: 03/07/17 1306 t: 03/08/17 1605, DISCHARGE SUMMARY
--- NOTE | ~2017-03-04 | NDGEN ---
PATIENT'S NAME: LISANDRA SAUL [facility] AGE: 61 Y [address] ROOM: [place] [address] LOCATION: [facility] ADMIT DATE: 03/04/2017 Neurodiagnostics DISCHARGE DATE: FAMILY PHYSICIAN: Medardo Mera MD ATTENDING PHYSICIAN: Sanjeev Angulo PROCEDURE: ELECTROENCEPHALOGRAM DATE OF PROCEDURE: 03/05/2017 TEST: TECH: CLINICAL DIAGNOSIS: DURATION OF EE minutes. REASON FOR EEG: Syncope, mental status changes. CLINICAL HISTORY: The patient is a 61-year-old female, who was found unresponsive. She is currently on a ventilator in ICU. EEG FINDINGS: The patient is awake for about 10% to 20% of the EEG. With maximal activation, a background of about 6 to 7 hertz is seen in the posterior head regions. During the sleep phase, vertex waves were seen in the central head regions. The patient's EEG primarily consists of theta slowing between 5 to 7 hertz. CLASSIFICATION: Abnormal 1, awake, asleep 10/20 scalp electrodes. 1. Background slow. IMPRESSION: This EEG shows evidence of a mild diffuse encephalopathy. No definitive epileptiform discharges or EEG seizures were seen during this recording. MD EDILBERTO SUE/modl /[id number] dtt: 03/09/17 0858 SNEHAL RAM MOHAN R. dtd: 03/06/17 1757
--- NOTE | ~2017-03-04 | ENPV ---
Vascular Lower Extremities DVT Study Procedure Demographics Patient Name LISANRDA SAUL Date of Study 03/05/2017 Patient Number [id number] Gender Female Date of 1955 Age 61 Visit Number [id number] Height Accession Number [id number] Weight Room Number G6212 BSA BMI Referring Samaria Batres MD Interpreting Obinna Ortiz MD Physician Kev Pace PARISH NURSE Physician Physician Ordering Physician Kev Pace CRNA House Painter Plant Tender Anthony Ortega, T Conclusions Summary No evidence of deep vein thrombosis in the right lower extremity veins visualized. The right proximal to mid peroneal veins were not visualized, cannot rule out deep vein thrombosis in these vein segments. Procedure Type of Study: Veins:Lower Extremities DVT Study, Lower Extremity Right. Indications for Study:Unilateral pain and edema. Additional Indications:Right lower extremity pain/edema Appropriate Use Criteria:9 Patient Status:Routine. Study Location:Inpatient Portable. Technical Quality:Limited visualization due to sub-optimal image. Velocities are measured in cm/s ; Diameters are measured in cm Right Lower Extremities DVT Study Measurements Right 2D and Doppler Measurements + + + + +------+------+ + !Location !Visualized!Compressibility!Thrombosis!Signal!Reflux!Reflux ! ! ! ! ! ! ! !(sec) ! + + + + +------+------+ + !GSV Thigh !Yes !Yes !None !Phasic! ! ! + + + + +------+------+ + !Common !Yes !Yes !None !Phasic! ! ! !Femoral ! ! ! ! ! ! ! + + + + +------+------+ + !Prox !Yes !Yes !None !Phasic! ! ! !Femoral ! ! ! ! ! ! ! + + + + +------+------+ + !Mid Femoral!Yes !Yes !None !Phasic! ! ! + + + + +------+------+ + !Dist !Yes !Yes !None !Phasic! ! ! !Femoral ! ! ! ! ! ! ! + + + + +------+------+ + !Popliteal !Yes !Yes !None !Phasic! ! ! + + + + +------+------+ + !Gastroc !Yes !Yes !None ! ! ! ! + + + + +------+------+ + !PTV !Yes !Yes !None ! ! ! ! + + + + +------+------+ + !Peroneal !Yes !Yes !None ! ! ! ! + + + + +------+------+ + Left Lower Extremities DVT Study Measurements Left 2D and Doppler Measurements + + + + +------+------+ + !Location !Visualized!Compressibility!Thrombosis!Signal!Reflux!Reflux ! ! ! ! ! ! ! !(sec) ! + + + + +------+------+ + !Common !Yes !Yes !None !Phasic! ! ! !Femoral ! ! ! ! ! ! ! + + + + +------+------+ + Signature dtt: EDILSON IBRAHIM dtgulshan: 03/05/17 0956 Physician Self Edit
[~2017-03-04 14:17] MED LIST changes: -NORCO 5-325 TA1 EACH PO; -ZOFRAN4 MG PO
[2017-03-04 14:41] LABS: BICARBONATE 38.6 mmol/L (18.0-23.0); HEMOGLOBIN 10.7 g/dL (10.0-15.0); MCV 87.5 fl (83.0-98.0); MPV 9.4 fl (9.4-12.4); PCO2 86 mmHg (35-45); PO2 54 mmHg (80-90); RDW-CV 16.4 % (11.9-14.6); WBC 7.5 K/uL (4.0-11.0)
[2017-03-04 14:42] LABS: MCH 25.7 pg (27.0-34.0); RBC 4.17 M/uL (3.50-5.50)
[2017-03-04 14:43] LABS: HEMATOCRIT 36.5 % (33.0-46.0); MCHC 29.3 gm/dL (32.0-36.5); PLATELET COUNT 512 K/uL (150-450)
[2017-03-04 14:51] LABS: INR - (THERAPEUTIC) 1.01 (0.92-1.07); PROTIME 10.6 SECONDS (9.8-11.4); PTT 28 SECONDS (25-32)
[2017-03-04 15:03] LABS: ALBUMIN 2.8 gm/dL (3.5-5.0); CALCIUM 8.5 mg/dL (8.5-10.5); CREATININE 1.3 mg/dL (0.5-1.1); TOTAL PROTEIN 7.3 g/dL (6.0-8.4)
[2017-03-04 15:07] LABS: ANION GAP 7.8 (10.0-19.0); POTASSIUM 6.8 mMol/L (3.7-5.1); TOTAL BILIRUBIN 0.1 mg/dL (0.0-1.5)
[2017-03-04 15:39] LABS: ABSOLUTE NEUTROPHIL CT (ANC) 5.6 K/uL (1.8-7.8); BANDED NEUTROPHIL # 0.2 K/uL (0.0-0.1); BANDED NEUTROPHILS % 3 %; LYMPHOCYTE # 1.4 K/uL (0.8-4.0); LYMPHOCYTE % 19 %; MONOCYTE # 0.1 K/uL (0.0-1.0); SEGMENTED NEUTROPHIL # 5.3 K/uL (1.8-7.8); SEGMENTED NEUTROPHIL % 71 %
[2017-03-04 16:09] LABS: BICARBONATE 29.2 mmol/L (18.0-23.0); LACTATE 0.9 mEq/L (0.50-1.60); PCO2 46 mmHg (35-45); PO2 90 mmHg (80-90)
--- NOTE | 2017-03-04 17:24 | NUR ---
d-arrived to er for stroke alert. upon arrival with rn documentation pt was completely obstructing. used jaw thrust for air movement. vbg showed pco2 86. during trip to CT, pt was verbal stating lower back pain. it was decided to blow off some CO2 with bipap. pt was able to maintain patent airway unless she fell asleep unitl bipap arrived. bipap was initiated at 1505 and pt bp dropped to 68, and eventually to a mean of 50. pt then also became less responsive. MD then gave me order to intubate. while preparing to do so, flight then came in and took over. ETT was confirmed by ETCO2 of [address] munson. placed pt on vent at 500, rr 16, peep5, .40 with abg of 7.41, 46, [address] was negative, labs were neg for sepsis/infection. K was 6.9. transported pt to ICU with complication. p-support as until stable
[2017-03-04 17:51] LABS: BILIRUBIN URINE NEGATIVE (NEGATIVE); BLOOD URINE 150 /UL (NEGATIVE); COLOR URINE YELLOW (YELLOW); GLUCOSE URINE 100 mg/dL (NEGATIVE); KETONE URINE NEGATIVE (NEGATIVE); LEUKOCYTES URINE 500 /UL (NEGATIVE); NITRITE URINE NEGATIVE (NEGATIVE); PROTEIN URINE 100 mg/dL (NEGATIVE); TURBIDITY URINE 4+ (CLEAR); UROBILINOGEN URINE NORMAL (NORMAL)
--- NOTE | 2017-03-04 17:55 | NUR ---
D: RESP DISTRESS I: VENT R: PT ARRIVED IN ICU AROUND 17:01, VENT SETTINGS AC 16, VT 500, P5, WEANED FIO2 TO 40%, PT HAS 8.0 ETT @ 23 @ [facility] SECURED W/ ETAD P: CONT.
[2017-03-04 18:06] LABS: WBC URINE PACKED FIELD #/HPF (NEGATIVE)
[2017-03-04 18:09] LABS: BACTERIA URINE FEW (NEGATIVE)
[2017-03-04 18:10] LABS: MUCUS URINE 1+ (NEGATIVE)
[2017-03-04 18:17] LABS: BARBITURATE NEGATIVE (NEGATIVE); COCAINE NEGATIVE (NEGATIVE); OPIATES NEGATIVE (NEGATIVE)
[2017-03-04 18:19] LABS: AMPHETAMINE NEGATIVE (NEGATIVE)
--- NOTE | 2017-03-04 19:04 | NUR ---
Significant Event: Lives at home with , does not ambulate, but does pivot transfer with 1 assist, sit to stand lift. found unresponsive at noon, brought to [facility] ER. CT of head was negative. Groaning and twitching, c/o pain in low back. Placed on Bipap on arrival to [facility] ER. Became hypotensive, chest xray completed, IV Calcium Gluconate, Insulin and D50 given for Potassium 6.9. Intubated by Janette brought to the ICU room 6212. IVF infusing. /day care teacher updated at bedside.
[2017-03-04 20:45] LABS: ALBUMIN 2.3 gm/dL (3.5-5.0); ANION GAP 12.1 (10.0-19.0); CALCIUM 8.1 mg/dL (8.5-10.5); POTASSIUM 5.1 mMol/L (3.7-5.1)
[2017-03-04 20:47] LABS: PHOSPHORUS 1.2 mg/dL (2.5-4.9)
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
--- NOTE | 2017-03-05 05:32 | NUR ---
FiO2 weaned to 30% this shift, CMV mode RR 14, Vt 500, PEEP of 5. Pt awake and alert wanting ETT out last night. BrSs mostly clear, diminished in bases. Trip to CT early this AM without complication. Pt fell asleep close to 0300 this AM, sleeping hard when tried in CPAP/PS 5/10 this AM. Vts only 200-300s, so placed back in CMV mode until more awake this AM. Continue per plan of care.
[2017-03-05 05:34] LABS: ANION GAP 10.8 (10.0-19.0); CALCIUM 7.7 mg/dL (8.5-10.5); CREATININE 0.9 mg/dL (0.5-1.1); POTASSIUM 3.8 mMol/L (3.7-5.1)
[2017-03-05 05:39] LABS: BASOPHIL % 0.6 %; EOSINOPHIL # 0.1 K/uL (0.0-0.5); EOSINOPHIL % 2.4 %; IMMATURE GRANULOCYTE % 0.2 %; LYMPHOCYTE # 1.9 K/uL (0.8-4.0); MCV 84.5 fl (83.0-98.0); MONOCYTE # 0.5 K/uL (0.0-1.0); MONOCYTE % 8.9 %; MPV 9.5 fl (9.4-12.4); NEUTROPHIL # (ANC) 2.6 K/uL (1.8-7.8); NEUTROPHIL % 50.9 %; NRBC % 0 /100WBC (0-0.00); RDW-CV 16.2 % (11.9-14.6); WBC 5.1 K/uL (4.0-11.0)
[2017-03-05 05:41] LABS: RBC 3.09 M/uL (3.50-5.50)
[2017-03-05 05:42] LABS: HEMATOCRIT 26.1 % (33.0-46.0); HEMOGLOBIN 7.8 g/dL (10.0-15.0); MCH 25.2 pg (27.0-34.0); MCHC 29.9 gm/dL (32.0-36.5); PLATELET COUNT 370 K/uL (150-450)
[2017-03-05 10:26] LABS: BASOPHIL # 0.1 K/uL (0.0-0.2); BASOPHIL % 1.1 %; EOSINOPHIL # 0.1 K/uL (0.0-0.5); EOSINOPHIL % 2.5 %; HEMATOCRIT 26.5 % (33.0-46.0); IMMATURE GRANULOCYTE % 0.2 %; LYMPHOCYTE # 1.7 K/uL (0.8-4.0); LYMPHOCYTE % 37.3 %; MCH 25.4 pg (27.0-34.0); MCHC 30.2 gm/dL (32.0-36.5); MCV 84.1 fl (83.0-98.0); MONOCYTE # 0.4 K/uL (0.0-1.0); MPV 9.7 fl (9.4-12.4); NEUTROPHIL # (ANC) 2.2 K/uL (1.8-7.8); NEUTROPHIL % 48.9 %; NRBC % 0 /100WBC (0-0.00); PLATELET COUNT 381 K/uL (150-450); RBC 3.15 M/uL (3.50-5.50); RDW-CV 16.5 % (11.9-14.6); WBC 4.4 K/uL (4.0-11.0)
[2017-03-05] MEDS ORDERED: ZOFRAN4 MG PO (10:57)
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
--- NOTE | 2017-03-06 04:40 | NUR ---
Significant Event:PT REMAINS ON THE VENT. PRECEDEX GTT STARTED AT 0000, CURRENTLY AT 0.3MCG/KG/MIN. HR'S 70'S-80'S. SBP 100'S-170'S. MAPS >65. AFEBRILE. AC MODE CURRENTLY, RR 14 OVER BREATHS IN THE 20'S. ETCO2 25-30'S. TV 500, PEEP 5 AND FIO2 30%. SC THROUGHOUT. NO BM DURING SHIFT. SUPRAPUBIC CATHETER TO DD WITH 900ML OUT. OG TO LIS, BILE OUT. MORPHINE GIVEN X2. Follow up:EXTUBATE.
--- NOTE | 2017-03-06 05:26 | NUR ---
CPAP trial last night went well, AC over night and back to CPAP/PS 11/07 this AM. BrSs clear and dim t/o. No changes. Possible extubate today?
[2017-03-06 12:13] LABS: BASOPHIL % 0.7 %; EOSINOPHIL % 0.5 %; HEMATOCRIT 27.1 % (33.0-46.0); HEMOGLOBIN 8.1 g/dL (10.0-15.0); IMMATURE GRANULOCYTE % 0.4 %; LYMPHOCYTE # 0.8 K/uL (0.8-4.0); LYMPHOCYTE % 14.4 %; MCH 25.2 pg (27.0-34.0); MCHC 29.9 gm/dL (32.0-36.5); MCV 84.4 fl (83.0-98.0); MONOCYTE # 0.3 K/uL (0.0-1.0); MONOCYTE % 5.7 %; MPV 9.1 fl (9.4-12.4); NEUTROPHIL # (ANC) 4.4 K/uL (1.8-7.8); NEUTROPHIL % 78.3 %; NRBC % 0 /100WBC (0-0.00); RBC 3.21 M/uL (3.50-5.50); RDW-CV 16.6 % (11.9-14.6); WBC 5.6 K/uL (4.0-11.0)
[2017-03-06 12:20] LABS: ANION GAP 15.4 (10.0-19.0); BLOOD UREA NITROGEN 11 mg/dL (6-24); CALCIUM 7.9 mg/dL (8.5-10.5); CHLORIDE 109 mMol/L (96-110); CO2 22 mMol/L (22-32); CREATININE 0.7 mg/dL (0.5-1.1); POTASSIUM 4.4 mMol/L (3.7-5.1); SODIUM 142 mMol/L (135-145)
[2017-03-06 12:24] LABS: PLATELET COUNT 289 K/uL (150-450)
--- NOTE | 2017-03-06 14:38 | NUR ---
VM from Linnea at [facility] in [place] wanting an update on Liya. Called her back, , Linnea tells me that they were providing Liya with IV Meropenem 500mg every 6 hours for home infusions and they will continue to do so once she is ready to return there if MDs still feel like IV Abxs are warrented. Let her know at this time, we were still trying to extubate Liya so I didn't anticipate she would dismiss anytime soon, but when she did we would let them know in advanced. Linnea was fine with this plan. CM to continue to follow and assist.
--- NOTE | 2017-03-06 18:09 | NUR ---
Significant Event:RESP: Extubated at 1015 to 4L now RA. Slightly coarse lung sounds. CARDIO: HTN. SBP 160s. Afebrile.
[2017-03-07] MEDS ORDERED: NORCO 5-325 TA1 EACH PO (12:21)
--- NOTE | 2017-03-07 15:18 | NUR ---
PICC LINE, CENTRAL LINE AND IV ALL DC'D. DISCHARGE INFO REVIEWED WITH PATIENT. NO FURTHER QUESTIONS AT THIS TIME. TAKEN TO FRONT LOBBY BY NURSE WHERE TRANSPORTED HOME.
== END 2017-03-07 15:05 | disposition disaster alternative care site (69) | DRG 100 ==
LOC: GMED 14:17 → GICU 17:01
PROVIDERS: Family Medicine; Internal Medicine; Internal Medicine Critical Care Medicine; ADMIT Internal Medicine
DX: R56.9 Unspecified convulsions (principal); J96.01 Acute respiratory failure with hypoxia; R57.9 Shock, unspecified; J96.02 Acute respiratory failure with hypercapnia; G93.41 Metabolic encephalopathy; N17.9 Acute kidney failure, unspecified; E11.9 Type 2 diabetes mellitus without complications; B96.5 Pseudomonas (aeruginosa) (mallei) (pseudomallei) as the cause of diseases classified elsewhere; G82.20 Paraplegia, unspecified; N39.0 Urinary tract infection, site not specified; E87.5 Hyperkalemia; D50.9 Iron deficiency anemia, unspecified; T36.1X5A Adverse effect of cephalosporins and other beta-lactam antibiotics, initial encounter; T40.4X5A Adverse effect of other synthetic narcotics, initial encounter; R82.71 Bacteriuria; E78.5 Hyperlipidemia, unspecified; I10 Essential (primary) hypertension; F32.9 Major depressive disorder, single episode, unspecified; N31.9 Neuromuscular dysfunction of bladder, unspecified; T43.225A Adverse effect of selective serotonin reuptake inhibitors, initial encounter; Z87.440 Personal history of urinary (tract) infections; Z93.59 Other cystostomy status; Z86.14 Personal history of Methicillin resistant Staphylococcus aureus infection; G47.33 Obstructive sleep apnea (adult) (pediatric); E66.01 Morbid (severe) obesity due to excess calories; Z68.30 Body mass index [BMI] 30.0-30.9, adult; Z88.0 Allergy status to penicillin; Z88.2 Allergy status to sulfonamides; Z88.8 Allergy status to other drugs, medicaments and biological substances; Z91.040 Latex allergy status; Z79.82 Long term (current) use of aspirin; Z79.84 Long term (current) use of oral hypoglycemic drugs
CPT/HCPCS: C9113; G0480; J0610; J1644; J2185; J2250; J2270; J7030; J7040; J7060

== ENCOUNTER → 2017-03-04 | Outpatient (CLI) | payer MEDICARE ==
[~2017-03-04] MED LIST changes: +FEOSOL325 MG PO; +MERREM IV500 MG IV; +NORCO 5-325 TA1 EACH PO; +ZOFRAN4 MG PO
== END | disposition disaster alternative care site (69) ==
LOC: GAMB 14:05
DX: A41.9 Sepsis, unspecified organism (principal); R06.83 Snoring; N39.0 Urinary tract infection, site not specified; N31.9 Neuromuscular dysfunction of bladder, unspecified; G82.20 Paraplegia, unspecified; D64.9 Anemia, unspecified; E11.9 Type 2 diabetes mellitus without complications; G47.33 Obstructive sleep apnea (adult) (pediatric); E66.01 Morbid (severe) obesity due to excess calories; K59.09 Other constipation; I10 Essential (primary) hypertension; Z79.2 Long term (current) use of antibiotics; Z95.818 Presence of other cardiac implants and grafts; Z88.0 Allergy status to penicillin; Z88.8 Allergy status to other drugs, medicaments and biological substances